=== PATIENT | male | born 1965 | race Caucasian/White ===

== ENCOUNTER 2016-11-03 11:37 | Emergency (ER) | payer MEDICARE, MEDICAID ==
--- NOTE | 2016-11-03 12:13 | EDM.PDOC ---
ED HPI GENERAL MEDICAL PROBLEM - General Chief Complaint: Syncope Stated Complaint: Unresponsive in dialysis Time Seen by Provider: 11/03/16 12:08 Source of Information: Reports: Patient, Family, RN History Limitations: Reports: No Limitations - History of Present Illness INITIAL COMMENTS - FREE TEXT/NARRATIVE: Arrives from 1st floor dialysis unit by orlin with report that pt became unresponsive for approx. 1 minute during his dialysis run today. Pt had just began dialysis and was 15 mins. into his run when the syncope occurred and tx was stopped. Pt was incontinent of stool during the episode. Dialysis nurse reports pt's eyes were open and he had a "fixed gaze" with no eye response to visual stimuli. Denies pain, fever, cough, N/V, SOTO, or chest pain. Pt denies any recent syncope or similar Sx's. Onset: Today Duration: Resolved Prior to Arrival Location: Reports: Generalized Improves with: Reports: None Worsens with: Reports: None Associated Symptoms: Reports: No Other Symptoms Back Pain Score (Numeric/FACES): 6 - Related Data Allergies Allergy/AdvReac Type Severity Reaction Status Date / Time ciprofloxacin Allergy Hives Verified 07/26/14 02:06 tegaderm tape Allergy Blisters Uncoded 07/26/14 02:06 Home Meds: Home Meds Aspirin [Ecotrin] 81 mg PO DAILY 06/27/13 [History] Cinacalcet [Sensipar] 30 mg PO DAILY 06/27/13 [History] Clopidogrel [Plavix] 75 mg PO DAILY 06/27/13 [History] Gabapentin [Neurontin] 300 mg PO TID 06/27/13 [History] Nitroglycerin [Nitrostat] 1 tab SL ASDIRECTED PRN 06/27/13 [History] Simvastatin [Zocor] 20 mg PO BEDTIME 06/27/13 [History] Acetaminophen 2 tab PO Q4HR PRN 07/26/14 [History] Calcium Carbonate/Vitamin D3 [Calcium 600 + Vit D 400 Tablet] 2 each PO BID 05/07 [History] Cyanocobalamin/FA/Pyridoxine [B Complex-Folic Acid] 1 each PO DAILY 07/26/14 [ History] Fludrocortisone [Florinef] 0.1 mg PO WITHBREAKFAST 07/26/14 [History] Loperamide HCl [Loperamide] 2 mg PO TID PRN 07/26/14 [History] Metoclopramide [Reglan] 5 mg PO TIDAC 07/26/14 [History] Midodrine 10 mg PO ASDIRECTED 07/26/14 [History] Mupirocin [Bactroban] 15 gm TP TID 07/26/14 [History] Nystatin [Nystatin Crm] 30 gm TOP BID 07/26/14 [History] Sevelamer Carbonate [Renvela] 2,400 mg PO TID 07/26/14 [History] Sodium Polystyrene Sulfonate [Kayexalate] 15 gm PO ONETIME 07/26/14 [History] fentaNYL [Fentanyl] 1 each TD ASDIRECTED 07/26/14 [History] oxyCODONE 10 mg PO BID PRN 07/26/14 [History] Sertraline [Zoloft] 50 mg PO DAILY 08/05/14 [History] Bisacodyl [Dulcolax] 10 mg RECTAL BID PRN 11/03/16 [History] Calcium Acetate 667 mg PO TID 11/03/16 [History] Past Medical History Cardiovascular History: Reports: CAD, Heart Failure, Hypertension, [place], SOB on Exertion, Stents Respiratory History: Reports: Sleep Apnea, SOB Gastrointestinal History: Reports: Cholelithiasis, Diverticulosis, GERD Genitourinary History: Reports: Acute Renal Failure, Chronic Renal Insuffiency, Dialysis, Diabetic Nephropathy, Renal Disease, Other (See Below) Other Genitourinary History: nephrolithiasis Musculoskeletal History: Reports: Fracture, Other (See Below) Other Musculoskeletal History: repair of fractured right kneecap Neurological History: Reports: Neuropathy, Diabetic, Neuropathy, Peripheral Psychiatric History: Reports: Eating Disorders Endocrine/Metabolic History: Reports: Diabetes, Type II, Hyperparathyroidism, IDDM, Obesity/BMI 30+ Hematologic History: Reports: Anemia Dermatologic History: Reports: Chronic Cellulitis - Past Surgical History Cardiovascular Surgical History: Reports: Carotid Stents, Coronary Artery Stent Social & Family History - Tobacco Use Smoking Status *Q: Never Smoker Years of Tobacco use: 20 Packs/Tins Daily: 1 Used Tobacco, but Quit: Yes Month Tobacco Last Used: 2003 Second Hand Smoke Exposure: No - Alcohol Use Days Per Week of Alcohol Use: 0 - Recreational Drug Use Recreational Drug Use: No - Living Situation & Occupation Living situation: Reports: , Extended Care Facility Occupation: Disabled ED ROS GENERAL - Review of Systems Review Of Systems: ROS reveals no pertinent complaints other than HPI. ED EXAM, GENERAL - Physical Exam Exam: See Below Exam Limited By: Other (doesn't recall the episode) General Appearance: Alert, Obese, Other (chronically ill appearing) Eye Exam: Bilateral Eye: Normal Inspection Ears: Hearing Grossly Normal Nose: Normal Inspection Throat/Mouth: Normal Voice, No Airway Compromise Head: Atraumatic, Normocephalic Neck: Normal Inspection, Supple, Non-Tender, Full Range of Motion Respiratory/Chest: No Respiratory Distress, Lungs Clear, No Accessory Muscle Use , Decreased Breath Sounds Cardiovascular: Regular Rate, Rhythm GI/Abdominal: Normal Bowel Sounds, Soft, Non-Tender, No Distention, Other ( obese abdomen) (Male) Exam: Deferred Rectal (Males) Exam: Deferred Neurological: Alert, Oriented, No Motor/Sensory Deficits Psychiatric: Normal Mood Skin Exam: Warm, Dry, Normal Color Course - Vital Signs Last Recorded V/S: Last Vital Signs Temp 35.7 C 11/03/16 12:25 Pulse 90 11/03/16 12:25 Resp 20 11/03/16 12:25 BP 166/107 H 11/03/16 12:25 Pulse Ox 95 11/03/16 12:25 - Orders/Labs/Meds Orders: Active Orders 24 hr Category Date Time Status Blood Glucose Check, Bedside [] ONETIME Care 11/03/16 12:23 Active EKG 12 Lead [EKG Documentation Completion] [RC] STAT Care 11/03/16 12:21 Active Peripheral IV Care [RC] . DIRECTED Care 11/03/16 12:23 Active CULTURE BLOOD [BC] Stat Lab 11/03/16 12:37 Received CULTURE BLOOD [BC] Stat Lab 11/03/16 13:03 Results Sodium Chloride 0.9% [Saline Flush] Med 11/03/16 12:20 Active 10 ml FLUSH ASDIRECTED PRN Blood Culture x2 Reflex Set [OM.PC] Stat Oth 11/03/16 12:23 Ordered Peripheral IV Insertion Adult [OM.PC] Stat Oth 11/03/16 12:21 Ordered Medication Orders Sodium Chloride (Saline Flush) 10 ml FLUSH ASDIRECTED PRN PRN Reason: Keep Vein Open Last Admin: 11/03/16 13:25 Dose: 10 ml Labs: Laboratory Tests 11/03/16 11/03/16 11/03/16 Range/Units 12:37 12:37 12:37 WBC 12.5 H (5.0-10.0) 10^3/uL RBC 3.70 L (4.6-6.2) 10^6/uL Hgb 11.3 L (14.0-18.0) g/dL Hct 36.7 L (40.0-54.0) % MCV 99.2 (80-100) fL MCH 30.5 (27.0-34.0) pg MCHC 30.8 L (33.0-35.0) g/dL Plt Count 175 (150-450) 10^3/uL Neut % (Auto) 83.0 H (42.2-75.2) % Lymph % (Auto) 7.9 L (20.5-50.1) % [place] % (Auto) 6.9 (2-8) % Eos % (Auto) 1.7 (1.0-3.0) % Baso % (Auto) 0.5 (0.0-1.0) % Sodium 140 (135-145) mmol/L Potassium 5.6 H (3.6-5.0) mmol/L Chloride 98 L (101-111) mmol/L Carbon Dioxide 29.0 (21.0-31.0) mmol/L Anion Gap 18.6 BUN 54 H (7-18) mg/dL Creatinine 6.9 H (0.6-1.3) mg/dL Est Cr Clr Drug Dosing 13.59 mL/min Estimated GFR (MDRD) 8 BUN/Creatinine Ratio 7.82 Glucose 114 H (74-105) mg/dL POC Glucose (70-105) mg/dl Lactic Acid (0.5-2.2) mmol/L Calcium 8.8 (8.4-10.2) mg/dl Total Bilirubin 0.6 (0.2-1.0) mg/dL AST 11 (10-42) IU/L ALT 8 L (10-60) IU/L Alkaline Phosphatase 96 (42-121) IU/L Creatine Kinase 56 (26-174) IU/L Creatine Kinase Index 6.6 H (0-2.4) % CK-MB (CK-2) 3.70 (0.4-4.7) ng/mL Troponin I 0.02 (0.00-0.02) ng/ml B-Natriuretic Peptide 423 H (0-100) pg/ml Total Protein 7.6 (6.7-8.2) g/dl Albumin 3.3 (3.2-5.5) g/dl Globulin 4.3 Albumin/Globulin Ratio 0.77 Amylase 264 H (28-100) U/L Lipase 29 (22-51) U/L 11/03/16 11/03/16 Range/Units 12:37 12:47 WBC (5.0-10.0) 10^3/uL RBC (4.6-6.2) 10^6/uL Hgb (14.0-18.0) g/dL Hct (40.0-54.0) % MCV (80-100) fL MCH (27.0-34.0) pg MCHC (33.0-35.0) g/dL Plt Count (150-450) 10^3/uL Neut % (Auto) (42.2-75.2) % Lymph % (Auto) (20.5-50.1) % [place] % (Auto) (2-8) % Eos % (Auto) (1.0-3.0) % Baso % (Auto) (0.0-1.0) % Sodium (135-145) mmol/L Potassium (3.6-5.0) mmol/L Chloride (101-111) mmol/L Carbon Dioxide (21.0-31.0) mmol/L Anion Gap BUN (7-18) mg/dL Creatinine (0.6-1.3) mg/dL Est Cr Clr Drug Dosing mL/min Estimated GFR (MDRD) BUN/Creatinine Ratio Glucose (74-105) mg/dL POC Glucose 130 H (70-105) mg/dl Lactic Acid 0.9 (0.5-2.2) mmol/L Calcium (8.4-10.2) mg/dl Total Bilirubin (0.2-1.0) mg/dL AST (10-42) IU/L ALT (10-60) IU/L Alkaline Phosphatase (42-121) IU/L Creatine Kinase (26-174) IU/L Creatine Kinase Index (0-2.4) % CK-MB (CK-2) (0.4-4.7) ng/mL Troponin I (0.00-0.02) ng/ml B-Natriuretic Peptide (0-100) pg/ml Total Protein (6.7-8.2) g/dl Albumin (3.2-5.5) g/dl Globulin Albumin/Globulin Ratio Amylase (28-100) U/L Lipase (22-51) U/L Meds: Medications Generic Name Dose Route Start Last Admin Trade Name Freq PRN Reason Stop Dose Admin Sodium Chloride 10 ml 11/03/16 12:20 11/03/16 13:25 Saline Flush FLUSH 10 ml ASDIRECTED PRN Administration Keep Vein Open Discontinued Medications Generic Name Dose Route Start Last Admin Trade Name Freq PRN Reason Stop Dose Admin Hydromorphone HCl 1 mg 11/03/16 12:56 11/03/16 13:06 Dilaudid IM 11/03/16 12:57 1 mg ONETIME ONE Administration - Radiology Interpretation Free Text/Narrative:: CXR: Asymmetric dense consolidation at Rt lung base that may represent effusion , or atelectasis. Stable cardiomegaly. See Rad. report. Departure - Departure Time of Disposition: 14:10 Disposition: DC/Tfer to Acute Hospital 02 Condition: Serious Clinical Impression: ESRD (end stage renal disease) on dialysis Syncope Qualifiers: Syncope type: unspecified Qualified Code(s): R55 - Syncope and collapse Abdominal pain Qualifiers: Abdominal location: lower abdomen, unspecified Qualified Code(s): R10.30 - Lower abdominal pain, unspecified - Discharge Information Forms: ED Department Discharge, Interfacility Transfer EMTALA - My Orders Last 24 Hours: My Active Orders 11/03/16 12:20 Sodium Chloride 0.9% [Saline Flush] 10 ml FLUSH ASDIRECTED PRN 11/03/16 12:21 EKG 12 Lead [EKG Documentation Completion] [RC] STAT Peripheral IV Insertion Adult [OM.PC] Stat 11/03/16 12:23 Blood Glucose Check, Bedside [RC] ONETIME Peripheral IV Care [RC] . DIRECTED Blood Culture x2 Reflex Set [OM.PC] Stat 11/03/16 12:37 CULTURE BLOOD [BC] Stat 11/03/16 13:03 CULTURE BLOOD [BC] Stat - Assessment/Plan Last 24 Hours: My Active Orders 11/03/16 12:20 Sodium Chloride 0.9% [Saline Flush] 10 ml FLUSH ASDIRECTED PRN 11/03/16 12:21 EKG 12 Lead [EKG Documentation Completion] [RC] STAT Peripheral IV Insertion Adult [OM.PC] Stat 11/03/16 12:23 Blood Glucose Check, Bedside [RC] ONETIME Peripheral IV Care [RC] . DIRECTED Blood Culture x2 Reflex Set [OM.PC] Stat 11/03/16 12:37 CULTURE BLOOD [BC] Stat 11/03/16 13:03 CULTURE BLOOD [BC] Stat
[2016-11-03] MEDS ORDERED: Sodium Chloride 0.9% 10 ML Syringe FLUSH PRN (12:20)
[2016-11-03 12:26] VITALS: BP 166/107
[2016-11-03] MEDS ORDERED: HYDROmorphone 1 MG/ML Syringe IM ONE (12:56)
--- NOTE | 2016-11-03 14:15 | CR ---
Clinical history: 51-year-old male chest pain. Interpretation: Abnormal. Cardiomegaly and generalized venous congestion/cephalization but relative improvement apparent pulmon zach axillary when compared directly to old film April 2015 i.e. less congested. Asymmetric dense consolidation right base that may represent pleural effusion and/or underlying atele ctasis and clinical? Right upper lobe and left lung relatively clear.
--- NOTE | 2016-11-05 12:36 | EKG ---
11/03/2016 - ANNA CAVAZOS - A 12-lead EKG shows normal sinus rhythm with heart rate of 91 and incomplete left bundle branch block. No significant ST elevation or ST depression noted on this 12-lead EKG. Nonspecific ST-T wave changes noted on lead V2 and V3. [facility] /[id number]
== END 2016-11-03 14:50 ==
LOC: DL.ED 11:37
DX: R55 Syncope and collapse (principal); I13.11 Hypertensive heart and chronic kidney disease without heart failure, with stage 5 chronic kidney disease, or end stage renal disease; N18.6 End stage renal disease; I50.9 Heart failure, unspecified; R10.30 Lower abdominal pain, unspecified; I25.2 Old myocardial infarction; I25.10 Atherosclerotic heart disease of native coronary artery without angina pectoris; E11.40 Type 2 diabetes mellitus with diabetic neuropathy, unspecified; K21.9 Gastro-esophageal reflux disease without esophagitis; E66.9 Obesity, unspecified; E11.22 Type 2 diabetes mellitus with diabetic chronic kidney disease; E21.3 Hyperparathyroidism, unspecified; Z88.1 Allergy status to other antibiotic agents; Z86.2 Personal history of diseases of the blood and blood-forming organs and certain disorders involving the immune mechanism; Z91.048 Other nonmedicinal substance allergy status; Z79.899 Other long term (current) drug therapy; Z79.82 Long term (current) use of aspirin; Z95.5 Presence of coronary angioplasty implant and graft; Z99.2 Dependence on renal dialysis
CPT/HCPCS: 36415; 71010; 80053; 82150; 82550; 82553; 82962; 83605; 83690; 83880; 84484; 85025; 87040; 93005; 93010; 96374; 99285; J1170; J7050; 99284

== ENCOUNTER 2017-02-06 09:29 | Emergency (ER) | payer MEDICARE, MEDICAID ==
[2017-02-06] MEDS ORDERED: Sodium Chloride 0.9% 10 ML Syringe FLUSH PRN (09:44)
[2017-02-06 10:34] LABS: CHLORIDE,CL 98 mmol/L (101-111); SODIUM,NA 138 mmol/L (135-145)
--- NOTE | 2017-02-06 10:36 | CR ---
Clinical history: 51-year-old male chest pain. Interpretation: Abnormal. Extremely poor inspiratory effort morbidly obese, [place] male with crowding/accentuating lung ma rkings in both bases. Masslike density in the right lung base present and unchanged since 03 November 2016 exam. Chronic cardiomegaly and generalized pulmonary venous congestion/cephalization. No new alveolar edema or dependent pleural fluid accumulation. No new lung mass or focal lobar pneumonia.
[2017-02-06 11:22] VITALS: BP 134/69
--- NOTE | 2017-02-06 11:36 | EDM.PDOC ---
ED HPI GENERAL MEDICAL PROBLEM - General Chief Complaint: Diabetic Complaint Stated Complaint: CRITICAL LAB Time Seen by Provider: 02/06/17 09:30 Source of Information: Reports: Patient, Family, Care Home Records, RN, RN Notes Reviewed History Limitations: Reports: Altered Mental Status - History of Present Illness INITIAL COMMENTS - FREE TEXT/NARRATIVE: Pt brought to the ER today by his and [facility] staff. states he has not been feeling well and did not go to dialysis on Thursday, so his last dialysis run was Thursday of this week. She states he has been more lethargic than usual. She states they were called because labs that were drawn yesterday were high. According to dialysis staff, his Potassium was 6.8. Dr. Rodriguez, scheduling clerk requests that the patient be evaluated and transferred to [facility]. Onset: Gradual - Related Data Allergies Allergy/AdvReac Type Severity Reaction Status Date / Time ciprofloxacin Allergy Hives Verified 07/26/14 02:06 tegaderm tape Allergy Blisters Uncoded 07/26/14 02:06 Home Meds: Home Meds Aspirin [Ecotrin] 81 mg PO DAILY 06/27/13 [History] Cinacalcet [Sensipar] 30 mg PO DAILY 06/27/13 [History] Clopidogrel [Plavix] 75 mg PO DAILY 06/27/13 [History] Gabapentin [Neurontin] 300 mg PO TID 06/27/13 [History] Nitroglycerin [Nitrostat] 1 tab SL ASDIRECTED PRN 06/27/13 [History] Simvastatin [Zocor] 20 mg PO BEDTIME 06/27/13 [History] Acetaminophen 2 tab PO Q4HR PRN 07/26/14 [History] Calcium Carbonate/Vitamin D3 [Calcium 600 + Vit D 400 Tablet] 2 each PO BID 05/07 [History] Cyanocobalamin/FA/Pyridoxine [B Complex-Folic Acid] 1 each PO DAILY 07/26/14 [ History] Fludrocortisone [Florinef] 0.1 mg PO WITHBREAKFAST 07/26/14 [History] Loperamide HCl [Loperamide] 2 mg PO TID PRN 07/26/14 [History] Metoclopramide [Reglan] 5 mg PO TIDAC 07/26/14 [History] Midodrine 10 mg PO ASDIRECTED 07/26/14 [History] Mupirocin [Bactroban] 15 gm TP TID 07/26/14 [History] Nystatin [Nystatin Crm] 30 gm TOP BID 07/26/14 [History] Sevelamer Carbonate [Renvela] 2,400 mg PO TID 07/26/14 [History] Sodium Polystyrene Sulfonate [Kayexalate] 15 gm PO ONETIME 07/26/14 [History] fentaNYL [Fentanyl] 1 each TD ASDIRECTED 07/26/14 [History] oxyCODONE 10 mg PO BID PRN 07/26/14 [History] Sertraline [Zoloft] 50 mg PO DAILY 08/05/14 [History] Bisacodyl [Dulcolax] 10 mg RECTAL BID PRN 11/03/16 [History] Calcium Acetate 667 mg PO TID 11/03/16 [History] Past Medical History Cardiovascular History: Reports: CAD, Heart Failure, Hypertension, [place], SOB on Exertion, Stents Respiratory History: Reports: Sleep Apnea, SOB Other Respiratory History: O2 dependent at all times, 2L per n/c Gastrointestinal History: Reports: Cholelithiasis, Diverticulosis, GERD Genitourinary History: Reports: Acute Renal Failure, Chronic Renal Insuffiency, Dialysis, Diabetic Nephropathy, Renal Disease, Other (See Below) Other Genitourinary History: nephrolithiasis Musculoskeletal History: Reports: Fracture, Other (See Below) Other Musculoskeletal History: repair of fractured right kneecap Neurological History: Reports: Neuropathy, Diabetic, Neuropathy, Peripheral Psychiatric History: Reports: Eating Disorders Endocrine/Metabolic History: Reports: Diabetes, Type II, Hyperparathyroidism, IDDM, Obesity/BMI 30+ Hematologic History: Reports: Anemia Dermatologic History: Reports: Chronic Cellulitis - Past Surgical History Cardiovascular Surgical History: Reports: Carotid Stents, Coronary Artery Stent Social & Family History - Tobacco Use Smoking Status *Q: Never Smoker Years of Tobacco use: 20 Packs/Tins Daily: 1 Used Tobacco, but Quit: Yes Month Tobacco Last Used: 2003 Second Hand Smoke Exposure: No - Caffeine Use Caffeine Use: Reports: Soda - Alcohol Use Days Per Week of Alcohol Use: 0 - Recreational Drug Use Recreational Drug Use: No - Living Situation & Occupation Living situation: Reports: , Extended Care Facility Occupation: Disabled ED ROS GENERAL - Review of Systems Review Of Systems: ROS reveals no pertinent complaints other than HPI. ED EXAM GENERAL NO PERIP PULSE - Physical Exam Exam: See Below Exam Limited By: Altered Mental Status General Appearance: No Apparent Distress, Lethargic Eye Exam: Bilateral Eye: Conjunctival Injection (Green matter from both eyes), EOMI, Normal Inspection, PERRL (4 sluggish) Ears: Normal External Exam, Hearing Grossly Normal Nose: Normal Inspection Throat/Mouth: Normal Inspection, Normal Voice, No Airway Compromise Head: Atraumatic, Normocephalic Neck: Normal Inspection, Supple, Non-Tender, Full Range of Motion Respiratory/Chest: No Respiratory Distress, No Accessory Muscle Use, Chest Non- Tender, Decreased Breath Sounds Cardiovascular: Normal Peripheral Pulses, Regular Rate, Rhythm, No Edema, No Gallop, No JVD, Systolic Murmur (+2) GI/Abdominal: Normal Bowel Sounds, Soft, Non-Tender, No Distention (Male) Exam: Deferred Rectal (Males) Exam: Deferred Back Exam: Normal Inspection, Full Range of Motion Extremities: Normal Inspection, Normal Range of Motion, Non-Tender, No Pedal Edema, Normal Capillary Refill Neurological: Oriented, Inattentive, Slow to Respond. No: Normal Gait (non weight bearing) Psychiatric: Normal Mood, Flat Affect Skin Exam: Warm, Dry, Intact, Normal Color, No Rash Lymphatic: No Adenopathy EKG INTERPRETATION EKG Date: 02/06/17 Rhythm: Other QRS: LBBB Comparison: No Change Course - Vital Signs Last Recorded V/S: Last Vital Signs Temp 98 F 02/06/17 09:31 Pulse 91 02/06/17 09:31 Resp 22 H 02/06/17 09:31 BP 134/69 02/06/17 09:31 Pulse Ox 71 L 02/06/17 09:31 - Orders/Labs/Meds Orders: Active Orders 24 hr Category Date Time Status EKG Documentation Completion [RC] STAT Care 02/06/17 09:44 Active Peripheral IV Care [RC] . DIRECTED Care 02/06/17 09:45 Active Peripheral IV Insertion Adult [OM.PC] Stat Oth 02/06/17 09:44 Ordered Labs: Laboratory Tests 02/06/17 02/06/17 Range/Units 10:06 10:06 WBC 10.3 H (5.0-10.0) 10^3/uL RBC 3.96 L (4.6-6.2) 10^6/uL Hgb 12.0 L (14.0-18.0) g/dL Hct 38.5 L (40.0-54.0) % MCV 97.2 (80-100) fL MCH 30.3 (27.0-34.0) pg MCHC 31.2 L (33.0-35.0) g/dL Plt Count 176 (150-450) 10^3/uL Neut % (Auto) 78.8 H (42.2-75.2) % Lymph % (Auto) 7.7 L (20.5-50.1) % [place] % (Auto) 11.8 H (2-8) % Eos % (Auto) 1.3 (1.0-3.0) % Baso % (Auto) 0.4 (0.0-1.0) % Sodium 138 (135-145) mmol/L Potassium 6.4 H (3.6-5.0) mmol/L Chloride 98 L (101-111) mmol/L Carbon Dioxide 27.0 (21.0-31.0) mmol/L Anion Gap 19.4 BUN 84 H D (7-18) mg/dL Creatinine 11.0 H D (0.6-1.3) mg/dL Est Cr Clr Drug Dosing TNP Estimated GFR (MDRD) 5 BUN/Creatinine Ratio 7.63 Glucose 97 (74-105) mg/dL Calcium 9.5 (8.4-10.2) mg/dl Total Bilirubin 0.4 (0.2-1.0) mg/dL AST 11 (10-42) IU/L ALT 9 L (10-60) IU/L Alkaline Phosphatase 83 (42-121) IU/L Troponin I 0.03 H* (0.00-0.02) ng/ml Total Protein 7.7 (6.7-8.2) g/dl Albumin 3.1 L (3.2-5.5) g/dl Globulin 4.6 Albumin/Globulin Ratio 0.67 Meds: Medications Discontinued Medications Generic Name Dose Route Start Last Admin Trade Name Freq PRN Reason Stop Dose Admin Sodium Chloride 10 ml 02/06/17 09:44 02/06/17 10:45 Saline Flush FLUSH 10 ml ASDIRECTED PRN Administration Keep Vein Open Departure - Departure Time of Disposition: 11:57 Disposition: DC/Tfer to Acute Hospital 02 Condition: Fair, Serious Clinical Impression: ESRD (end stage renal disease) on dialysis, Hyperkalemia - Discharge Information Referrals: PCP,Unobtain [Primary Care Provider] - Forms: ED Department Discharge, Interfacility Transfer ANJELICA - My Orders Last 24 Hours: My Active Orders 02/06/17 09:44 EKG Documentation Completion [RC] STAT Peripheral IV Insertion Adult [OM.PC] Stat 02/06/17 09:45 Peripheral IV Care [RC] . DIRECTED - Assessment/Plan Last 24 Hours: My Active Orders 02/06/17 09:44 EKG Documentation Completion [RC] STAT Peripheral IV Insertion Adult [OM.PC] Stat 02/06/17 09:45 Peripheral IV Care [RC] . DIRECTED
--- NOTE | 2017-02-11 10:50 | EKG ---
02/06/2017 - ANNA CAVAZOS I reviewed the EKG and agree with the machine's reading. [facility] /[id number]
== END 2017-02-06 11:57 ==
LOC: DL.ED 09:29 → EEVIPCON 09:29 → DL.ED 11:57
DX: I13.2 Hypertensive heart and chronic kidney disease with heart failure and with stage 5 chronic kidney disease, or end stage renal disease (principal); E11.22 Type 2 diabetes mellitus with diabetic chronic kidney disease; N18.6 End stage renal disease; I50.9 Heart failure, unspecified; E87.5 Hyperkalemia; Z99.2 Dependence on renal dialysis; Z88.1 Allergy status to other antibiotic agents; Z91.09 Other allergy status, other than to drugs and biological substances; Z79.82 Long term (current) use of aspirin; Z79.899 Other long term (current) drug therapy; Z87.891 Personal history of nicotine dependence
CPT/HCPCS: 36415; 71010; 80053; 84484; 85025; 93005; 99285; J7050; 93010; 99284

== ENCOUNTER 2018-03-12 12:54 | Emergency (ER) | payer MEDICARE, MEDICAID ==
[2018-03-12 13:03] VITALS: BP 119/74
--- NOTE | 2018-03-12 14:06 | CR ---
Clinical history: 52-year-old obese diabetic male with shortness of breath. Interpretation: Abnormal. Chronic venous congestion and pleural reactive density right base relatively unchanged when compared to October and January 2017 films. Bibasilar new bibasilar atelectasis, infiltrates or infarct possibly reflecting less than optimal inspiratory effort this [place] patient. Cardiac silhouette normal without cephalization of flow, new alveolar edema or dependent pleural fluid accumulation. No pneumothorax or free subdiaphragmatic air. CONCLUSION: Chronic abnormalities similar to appearance [facility] chest films 2017 (see above).
[2018-03-12 14:08] LABS: ANION GAP 16.3; CHLORIDE,CL 94 mmol/L (101-111); SODIUM,NA 136 mmol/L (135-145)
--- NOTE | 2018-03-12 14:31 | EDM.PDOC ---
ED HPI GENERAL MEDICAL PROBLEM - General Chief Complaint: Respiratory Problem Stated Complaint: TROUBLE BREATHING Time Seen by Provider: 03/12/18 13:17 Source of Information: Reports: Patient, RN, RN Notes Reviewed History Limitations: Reports: No Limitations - History of Present Illness INITIAL COMMENTS - FREE TEXT/NARRATIVE: Patient presented to ER from dialysis with complaint of shortness of breath. Report from dialysis nurses was sudden onset of shortness of breath. His sats were down to 75%. He has 02 on at all times. He has had no nausea, vomiting, diarrhea, cough and chest pain. No chills or shortness of breath. His states very sleepy always. Patient only had half hour run today and no weight was taken off. Onset: Today Duration: Getting Worse Location: Reports: Generalized Quality: Reports: Ache Severity: Moderate Improves with: Reports: None Worsens with: Reports: None Associated Symptoms: Reports: No Other Symptoms - Related Data Allergies Allergy/AdvReac Type Severity Reaction Status Date / Time ciprofloxacin Allergy Hives Verified 07/26/14 02:06 tegaderm tape Allergy Blisters Uncoded 07/26/14 02:06 Home Meds: Home Meds Aspirin [Ecotrin] 81 mg PO DAILY 06/27/13 [History] Cinacalcet [Sensipar] 30 mg PO DAILY 06/27/13 [History] Clopidogrel [Plavix] 75 mg PO DAILY 06/27/13 [History] Gabapentin [Neurontin] 300 mg PO TID 06/27/13 [History] Nitroglycerin [Nitrostat] 1 tab SL ASDIRECTED PRN 06/27/13 [History] Simvastatin [Zocor] 20 mg PO BEDTIME 06/27/13 [History] Acetaminophen 2 tab PO Q4HR PRN 07/26/14 [History] Calcium Carbonate/Vitamin D3 [Calcium 600 + Vit D 400 Tablet] 2 each PO BID 05/07 [History] Cyanocobalamin/FA/Pyridoxine [B Complex-Folic Acid] 1 each PO DAILY 07/26/14 [ History] Fludrocortisone [Florinef] 0.1 mg PO WITHBREAKFAST 07/26/14 [History] Loperamide HCl [Loperamide] 2 mg PO TID PRN 07/26/14 [History] Metoclopramide [Reglan] 5 mg PO TIDAC 07/26/14 [History] Midodrine 10 mg PO ASDIRECTED 07/26/14 [History] Mupirocin [Bactroban] 15 gm TP TID 07/26/14 [History] Nystatin [Nystatin Crm] 30 gm TOP BID 07/26/14 [History] Sevelamer Carbonate [Renvela] 2,400 mg PO TID 07/26/14 [History] Sodium Polystyrene Sulfonate [Kayexalate] 15 gm PO ONETIME 07/26/14 [History] fentaNYL [Fentanyl] 1 each TD ASDIRECTED 07/26/14 [History] oxyCODONE 10 mg PO BID PRN 07/26/14 [History] Sertraline [Zoloft] 50 mg PO DAILY 08/05/14 [History] Bisacodyl [Dulcolax] 10 mg RECTAL BID PRN 11/03/16 [History] Calcium Acetate 667 mg PO TID 11/03/16 [History] Past Medical History Cardiovascular History: Reports: CAD, Heart Failure, Hypertension, [place], SOB on Exertion, Stents Respiratory History: Reports: Sleep Apnea, SOB Other Respiratory History: O2 dependent at all times, 2L per n/c Gastrointestinal History: Reports: Cholelithiasis, Diverticulosis, GERD Genitourinary History: Reports: Acute Renal Failure, Chronic Renal Insuffiency, Dialysis, Diabetic Nephropathy, Renal Disease, Other (See Below) Other Genitourinary History: nephrolithiasis Musculoskeletal History: Reports: Fracture, Other (See Below) Other Musculoskeletal History: repair of fractured right kneecap Neurological History: Reports: Neuropathy, Diabetic, Neuropathy, Peripheral Psychiatric History: Reports: Eating Disorders Endocrine/Metabolic History: Reports: Diabetes, Type II, Hyperparathyroidism, IDDM, Obesity/BMI 30+ Hematologic History: Reports: Anemia Dermatologic History: Reports: Chronic Cellulitis - Past Surgical History Cardiovascular Surgical History: Reports: Carotid Stents, Coronary Artery Stent Social & Family History - Caffeine Use Caffeine Use: Reports: Soda - Living Situation & Occupation Living situation: Reports: , Extended Care Facility Occupation: Disabled ED ROS GENERAL - Review of Systems Review Of Systems: ROS reveals no pertinent complaints other than HPI. ED EXAM, GENERAL - Physical Exam Exam: See Below Exam Limited By: No Limitations General Appearance: Other (sleepy and lethargic) Eye Exam: Bilateral Eye: EOMI, Normal Inspection, PERRL Ears: Normal External Exam, Normal Canal, Hearing Grossly Normal, Normal TMs Nose: Normal Inspection, Normal Mucosa, No Blood Throat/Mouth: Normal Inspection, Normal Lips, Normal Teeth, Normal Gums, Normal Oropharynx, Normal Voice, No Airway Compromise Head: Atraumatic, Normocephalic Neck: Normal Inspection, Supple, Non-Tender, Full Range of Motion Respiratory/Chest: Crackles, Other (lung sounds diminished) Cardiovascular: Other (murmur) GI/Abdominal: Normal Bowel Sounds, Soft, Non-Tender, No Organomegaly, No Distention, No Abnormal Bruit, No Mass (Male) Exam: Deferred Rectal (Males) Exam: Deferred Back Exam: Normal Inspection, Full Range of Motion, NT Extremities: Normal Inspection, Normal Range of Motion, Non-Tender, Normal Capillary Refill, No Pedal Edema Neurological: Alert, Oriented, CN II-XII Intact, Normal Cognition, Normal Gait, Normal Reflexes, No Motor/Sensory Deficits Psychiatric: Normal Affect, Normal Mood Skin Exam: Warm, Dry, Intact, Normal Color, No Rash EKG INTERPRETATION EKG Date: 03/12/18 Time: 12:54 Rhythm: Other (Sinus with PVC, LBBB) Rate (Beats/Min): 83 P-Wave: Present QRS: LBBB ST-T: Normal QT: Normal Comparison: No Change Course - Vital Signs Last Recorded V/S: Last Vital Signs Temp 97.2 F 03/12/18 13:02 Pulse 82 03/12/18 13:02 Resp 20 03/12/18 13:02 BP 119/74 03/12/18 13:02 Pulse Ox - Orders/Labs/Meds Orders: Active Orders 24 hr Category Date Time Status EKG 12 Lead [EKG Documentation Completion] [RC] STAT Care 03/12/18 12:50 Active Labs: Laboratory Tests 03/12/18 03/12/18 Range/Units 13:40 13:40 WBC 14.7 H (5.0-10.0) 10^3/uL RBC 4.14 L (4.6-6.2) 10^6/uL Hgb 12.5 L (14.0-18.0) g/dL Hct 40.9 (40.0-54.0) % MCV 98.8 (80-100) fL MCH 30.2 (27.0-34.0) pg MCHC 30.6 L (33.0-35.0) g/dL Plt Count 153 (150-450) 10^3/uL Neut % (Auto) 82.7 H (42.2-75.2) % Lymph % (Auto) 6.5 L (20.5-50.1) % [place] % (Auto) 8.8 H (2-8) % Eos % (Auto) 1.6 (1.0-3.0) % Baso % (Auto) 0.4 (0.0-1.0) % Sodium 136 (135-145) mmol/L Potassium 4.3 D (3.6-5.0) mmol/L Chloride 94 L (101-111) mmol/L Carbon Dioxide 30.0 (21.0-31.0) mmol/L Anion Gap 16.3 BUN 38 H D (7-18) mg/dL Creatinine 5.5 H D (0.6-1.3) mg/dL Est Cr Clr Drug Dosing 16.85 mL/min Estimated GFR (MDRD) 11 BUN/Creatinine Ratio 6.90 Glucose 126 H (74-105) mg/dL Calcium 9.2 (8.4-10.2) mg/dl Total Bilirubin 1.0 (0.2-1.0) mg/dL AST 14 (10-42) IU/L ALT 11 (10-60) IU/L Alkaline Phosphatase 128 H (42-121) IU/L Troponin I < 0.02 (0.00-0.02) ng/ml B-Natriuretic Peptide 599 H (0-100) pg/ml Total Protein 8.1 (6.7-8.2) g/dl Albumin 4.3 (3.2-5.5) g/dl Globulin 3.8 Albumin/Globulin Ratio 1.13 - Radiology Interpretation Free Text/Narrative:: Chest xray: New bibasilar atelectasis, infiltrates, or infarct possibly reflecting less than optimal inspiratory effort. See rad report Departure - Departure Time of Disposition: 14:38 Disposition: Home, Self-Care 01 Condition: Fair Clinical Impression: ESRD (end stage renal disease) on dialysis Pneumonia Qualifiers: Pneumonia type: due to unspecified organism Laterality: bilateral Lung location : unspecified part of lung Qualified Code(s): J18.9 - Pneumonia, unspecified organism - Discharge Information *PRESCRIPTION DRUG MONITORING PROGRAM REVIEWED*: No *COPY OF PRESCRIPTION DRUG MONITORING REPORT IN PATIENT ELISABETH: No Instructions: Community-Acquired Pneumonia, Adult, [id number] Referrals: Gagandeep Moran MD [Primary Care Provider] - Forms: ED Department Discharge Additional Instructions: RX: Azithromycin Follow up with dialysis Rest Follow up with Simi Voss NP - My Orders Last 24 Hours: My Active Orders 03/12/18 12:50 EKG 12 Lead [EKG Documentation Completion] [RC] STAT - Assessment/Plan Last 24 Hours: My Active Orders 03/12/18 12:50 EKG 12 Lead [EKG Documentation Completion] [RC] STAT
== END 2018-03-12 14:55 | disposition home or self-care (01) ==
LOC: DL.ED 12:54
DX: J18.9 Pneumonia, unspecified organism (principal); I13.2 Hypertensive heart and chronic kidney disease with heart failure and with stage 5 chronic kidney disease, or end stage renal disease; E11.22 Type 2 diabetes mellitus with diabetic chronic kidney disease; N18.6 End stage renal disease; I50.9 Heart failure, unspecified; Z99.2 Dependence on renal dialysis; I25.2 Old myocardial infarction; E11.40 Type 2 diabetes mellitus with diabetic neuropathy, unspecified; Z79.82 Long term (current) use of aspirin; Z79.899 Other long term (current) drug therapy; Z88.1 Allergy status to other antibiotic agents; Z91.09 Other allergy status, other than to drugs and biological substances
CPT/HCPCS: 36415; 71045; 80053; 83880; 84484; 85025; 93005; 99285

== ENCOUNTER 2018-03-17 14:45 | Emergency (ER) | payer MEDICARE, MEDICAID ==
[2018-03-17 15:08] VITALS: BP 141/81
[2018-03-17 15:57] LABS: ANION GAP 17.6; CHLORIDE,CL 92 mmol/L (101-111); SODIUM,NA 133 mmol/L (135-145)
[2018-03-17] MEDS ORDERED: cefTRIAXone 500 MG Vial IVPUSH ONE (16:28)
[2018-03-17] MEDS ORDERED: Acetaminophen 325 MG Tab PO ONE (16:49)
--- NOTE | 2018-03-17 16:53 | EDM.PDOC ---
Scribed by Sarahi Cohen 03/17/18 1313 for Danie Diane PA ED HPI GENERAL MEDICAL PROBLEM - General Chief Complaint: Headache Stated Complaint: SOB Time Seen by Provider: 03/17/18 16:10 Source of Information: Reports: Patient, RN, RN Notes Reviewed History Limitations: Reports: No Limitations - History of Present Illness INITIAL COMMENTS - FREE TEXT/NARRATIVE: Patient states his head hurts x 2 days. He is eating and drinking but has decreased appetite. Last night he was dropping things. He has had a headache. He has a head droop x1 months. Two weeks ago reported to nurse the drooping symptoms. Onset: Gradual Duration: Constant Location: Reports: Head Quality: Reports: Ache Severity: Mild Improves with: Reports: None Worsens with: Reports: None Associated Symptoms: Reports: No Other Symptoms Headache Pain Score (Numeric/FACES): 7 - Related Data Allergies Allergy/AdvReac Type Severity Reaction Status Date / Time ciprofloxacin Allergy Hives Verified 03/17/18 15:13 tegaderm tape Allergy Blisters Uncoded 03/17/18 15:13 Home Meds: Home Meds Aspirin [Ecotrin] 81 mg PO DAILY 06/27/13 [History] Cinacalcet [Sensipar] 30 mg PO DAILY 06/27/13 [History] Clopidogrel [Plavix] 75 mg PO DAILY 06/27/13 [History] Gabapentin [Neurontin] 300 mg PO TID 06/27/13 [History] Nitroglycerin [Nitrostat] 1 tab SL ASDIRECTED PRN 06/27/13 [History] Simvastatin [Zocor] 20 mg PO BEDTIME 06/27/13 [History] Acetaminophen 2 tab PO Q4HR PRN 07/26/14 [History] Calcium Carbonate/Vitamin D3 [Calcium 600 + Vit D 400 Tablet] 2 each PO BID 05/07 [History] Cyanocobalamin/FA/Pyridoxine [B Complex-Folic Acid] 1 each PO DAILY 07/26/14 [ History] Fludrocortisone [Florinef] 0.1 mg PO WITHBREAKFAST 07/26/14 [History] Loperamide HCl [Loperamide] 2 mg PO TID PRN 07/26/14 [History] Metoclopramide [Reglan] 5 mg PO TIDAC 07/26/14 [History] Midodrine 10 mg PO ASDIRECTED 07/26/14 [History] Mupirocin [Bactroban] 15 gm TP TID 07/26/14 [History] Nystatin [Nystatin Crm] 30 gm TOP BID 07/26/14 [History] Sevelamer Carbonate [Renvela] 2,400 mg PO TID 07/26/14 [History] Sodium Polystyrene Sulfonate [Kayexalate] 15 gm PO ONETIME 07/26/14 [History] fentaNYL [Fentanyl] 1 each TD ASDIRECTED 07/26/14 [History] oxyCODONE 10 mg PO BID PRN 07/26/14 [History] Sertraline [Zoloft] 50 mg PO DAILY 08/05/14 [History] Bisacodyl [Dulcolax] 10 mg RECTAL BID PRN 11/03/16 [History] Calcium Acetate 667 mg PO TID 11/03/16 [History] Past Medical History Cardiovascular History: Reports: CAD, Heart Failure, Hypertension, [place], SOB on Exertion, Stents Respiratory History: Reports: Sleep Apnea, SOB Other Respiratory History: O2 dependent at all times, 2L per n/c Gastrointestinal History: Reports: Cholelithiasis, Diverticulosis, GERD Genitourinary History: Reports: Acute Renal Failure, Chronic Renal Insuffiency, Dialysis, Diabetic Nephropathy, Renal Disease, Other (See Below) Other Genitourinary History: nephrolithiasis Musculoskeletal History: Reports: Fracture, Other (See Below) Other Musculoskeletal History: repair of fractured right kneecap Neurological History: Reports: Neuropathy, Diabetic, Neuropathy, Peripheral Psychiatric History: Reports: Eating Disorders Endocrine/Metabolic History: Reports: Diabetes, Type II, Hyperparathyroidism, IDDM, Obesity/BMI 30+ Hematologic History: Reports: Anemia Oncologic (Cancer) History: Reports: None Dermatologic History: Reports: Chronic Cellulitis - Past Surgical History Cardiovascular Surgical History: Reports: Carotid Stents, Coronary Artery Stent Social & Family History - Family History Family Medical History: Noncontributory - Tobacco Use Smoking Status *Q: Never Smoker - Caffeine Use Caffeine Use: Reports: Soda - Recreational Drug Use Recreational Drug Use: No - Living Situation & Occupation Living situation: Reports: , Extended Care Facility Occupation: Disabled ED ROS GENERAL - Review of Systems Review Of Systems: ROS reveals no pertinent complaints other than HPI. - Physical Exam Exam: See Below Exam Limited By: No Limitations General Appearance: Alert, WD/WN, No Apparent Distress Eye Exam: Bilateral Eye: EOMI, Normal Inspection, PERRL Ears: Normal External Exam Nose: Normal Inspection, Normal Mucosa, No Blood Throat/Mouth: Normal Inspection, Normal Lips, Normal Teeth, Normal Gums, Normal Oropharynx, Normal Voice, No Airway Compromise Head Exam: Atraumatic, Normocephalic Neck: Normal Inspection, Supple, Non-Tender, Full Range of Motion Respiratory/Chest: No Respiratory Distress, Normal Breath Sounds, No Accessory Muscle Use, Chest Non-Tender, Decreased Breath Sounds (throughout ) Cardiovascular: Normal Peripheral Pulses, Regular Rate, Rhythm, No Edema, No Gallop, No JVD, No Murmur, No Rub GI/Abdominal: Normal Bowel Sounds, Soft, Non-Tender, No Organomegaly, No Distention, No Abnormal Bruit, No Mass (Male) Exam: Deferred Rectal (Males) Exam: Deferred Neuro Exam (Abbreviated): Alert, Oriented, CN II-XII Intact, Normal Cognition, Normal Gait, Normal Reflexes, No Motor/Sensory Deficits Back Exam: Normal Inspection, Full Range of Motion, NT Extremities: Normal Inspection, Normal Range of Motion, Non-Tender, No Pedal Edema, Normal Capillary Refill Psychiatric: Normal Affect, Normal Mood Skin Exam: Warm, Dry, Intact, Normal Color, No Rash Course - Vital Signs Last Recorded V/S: Last Vital Signs Temp 36.2 C 03/17/18 15:05 Pulse 83 03/17/18 15:05 Resp 18 03/17/18 15:05 BP 141/81 H 03/17/18 15:05 Pulse Ox 100 03/17/18 15:05 - Orders/Labs/Meds Orders: Active Orders 24 hr Category Date Time Status Chest 1V Frontal [CR] Urgent Exams 03/17/18 15:55 Taken Head wo Cont [CT] Urgent Exams 03/17/18 15:11 Taken Labs: Laboratory Tests 03/17/18 03/17/18 03/17/18 Range/Units 15:20 15:20 15:20 WBC 11.2 H (5.0-10.0) 10^3/uL RBC 4.02 L (4.6-6.2) 10^6/uL Hgb 12.2 L (14.0-18.0) g/dL Hct 40.0 (40.0-54.0) % MCV 99.5 (80-100) fL MCH 30.3 (27.0-34.0) pg MCHC 30.5 L (33.0-35.0) g/dL Plt Count 159 (150-450) 10^3/uL Neut % (Auto) 83.1 H (42.2-75.2) % Lymph % (Auto) 6.9 L (20.5-50.1) % [place] % (Auto) 8.1 H (2-8) % Eos % (Auto) 1.5 (1.0-3.0) % Baso % (Auto) 0.4 (0.0-1.0) % PT 9.8 (9.0-12.0) SEC INR 1.0 (0.9-1.2) Sodium 133 L (135-145) mmol/L Potassium 3.6 (3.6-5.0) mmol/L Chloride 92 L (101-111) mmol/L Carbon Dioxide 27.0 (21.0-31.0) mmol/L Anion Gap 17.6 BUN 24 H (7-18) mg/dL Creatinine 4.3 H D (0.6-1.3) mg/dL Est Cr Clr Drug Dosing 21.56 mL/min Estimated GFR (MDRD) 14 BUN/Creatinine Ratio 5.58 Glucose 127 H (74-105) mg/dL Calcium 9.0 (8.4-10.2) mg/dl Total Bilirubin 0.8 (0.2-1.0) mg/dL AST 15 (10-42) IU/L ALT 19 (10-60) IU/L Alkaline Phosphatase 127 H (42-121) IU/L Troponin I < 0.02 (0.00-0.02) ng/ml Total Protein 9.0 H (6.7-8.2) g/dl Albumin 4.6 (3.2-5.5) g/dl Globulin 4.4 Albumin/Globulin Ratio 1.05 Meds: Medications Discontinued Medications Generic Name Dose Route Start Last Admin Trade Name Freq PRN Reason Stop Dose Admin Ceftriaxone Sodium 1,000 mg 03/17/18 16:28 03/17/18 16:37 Rocephin IVPUSH 03/17/18 16:29 1,000 mg ONETIME ONE Administration Departure - Departure Time of Disposition: 16:48 Disposition: Home, Self-Care 01 Condition: Fair Clinical Impression: Tension-type headache - Discharge Information *PRESCRIPTION DRUG MONITORING PROGRAM REVIEWED*: Not Applicable *COPY OF PRESCRIPTION DRUG MONITORING REPORT IN PATIENT ELISABETH: Not Applicable Instructions: General Headache Without Cause, [id number] Forms: ED Department Discharge Care Plan Goals: The patient and family were advised of the examination, lab and CT results during the visit. The patient was given an IV dose of Rocephin due to an elevated WBC with a history of pneumonia (currently on Azithromycin). The patient was also given an oral dose of Tylenol while in the ED. The patient was encouraged to continue to communicate with nursing staff. If the patient has any additional symptoms or concerns, the patient should visit his primary care facility or return to the emergency department. - My Orders Last 24 Hours: My Active Orders 03/17/18 15:11 Head wo Cont [CT] Urgent 03/17/18 15:55 Chest 1V Frontal [CR] Urgent - Assessment/Plan Last 24 Hours: My Active Orders 03/17/18 15:11 Head wo Cont [CT] Urgent 03/17/18 15:55 Chest 1V Frontal [CR] Urgent I have read and agree with the documentation that has been completed regarding this visit. By signing this record, I attest that the documentation was completed in my physical presence and is an accurate record of the encounter.
== END 2018-03-17 17:14 | disposition home or self-care (01) ==
LOC: DL.ED 14:45
DX: G44.209 Tension-type headache, unspecified, not intractable (principal); I13.0 Hypertensive heart and chronic kidney disease with heart failure and stage 1 through stage 4 chronic kidney disease, or unspecified chronic kidney disease; I50.9 Heart failure, unspecified; E11.40 Type 2 diabetes mellitus with diabetic neuropathy, unspecified; N18.9 Chronic kidney disease, unspecified; E11.22 Type 2 diabetes mellitus with diabetic chronic kidney disease; D63.1 Anemia in chronic kidney disease; Z88.1 Allergy status to other antibiotic agents; Z88.8 Allergy status to other drugs, medicaments and biological substances; Z79.82 Long term (current) use of aspirin; Z79.899 Other long term (current) drug therapy
CPT/HCPCS: 36415; 70450; 71045; 80053; 84484; 85025; 85610; 96374; 99284; A9270; J0696

== ENCOUNTER 2019-03-30 14:54 | Emergency (ER) | payer MEDICARE, MEDICAID ==
[2019-03-30 15:17] VITALS: BP 111/51; PULSE 93
[2019-03-30] MEDS ORDERED: Sodium Chloride 0.9% 10 ML Syringe FLUSH PRN (15:40)
--- NOTE | 2019-03-30 16:04 | EDM.PDOC ---
ED HPI GENERAL MEDICAL PROBLEM - General Chief Complaint: General Stated Complaint: RESPIRATORY PROBLEM Time Seen by Provider: 03/30/19 15:20 Source of Information: Reports: Patient, Family (), [facility] Records, Old Records, RN, RN Notes Reviewed History Limitations: Reports: No Limitations - History of Present Illness INITIAL COMMENTS - FREE TEXT/NARRATIVE: Pt sent from dialysis with report of shortness of breath, low BP, and not feeling well in general. Pt had a full run of dialysis today, but only had 1.3kg taken off today because his BP was too low. Pt denies chest pain, nausea, vomiting, aspiration, abdominal pain, cough, or increasing edema. He reports having a painful area of skin pressure or early skin break down on his buttock. [facility] a barrier ointment on the area, but he doesn' t think it is helping. Pt is not able to stand, bear wt, or ambulate. He sits in his wheel chair all day, and sleeps in a recliner. He requires a [employer] Lift for transfers. Onset: Gradual Duration: Week(s): (1-2), Constant, Getting Worse Location: Reports: Chest, Generalized Quality: Reports: Ache (at buttock area of skin break down) Severity: Severe Improves with: Reports: None Worsens with: Reports: Other (Sitting) Associated Symptoms: Reports: No Other Symptoms Treatments SET UP OPERATOR: Reports: IV/IO Neck Pain Score (Numeric/FACES): 2 - Related Data Allergies Allergy/AdvReac Type Severity Reaction Status Date / Time ciprofloxacin Allergy Hives Verified 03/30/19 15:24 tegaderm tape Allergy Blisters Uncoded 03/30/19 15:24 Home Meds: Home Meds Aspirin [Ecotrin] 81 mg PO DAILY 06/27/13 [History] Cinacalcet [Sensipar] 30 mg PO DAILY 06/27/13 [History] Clopidogrel [Plavix] 75 mg PO DAILY 06/27/13 [History] Gabapentin [Neurontin] 300 mg PO TID 06/27/13 [History] Nitroglycerin [Nitrostat] 1 tab SL ASDIRECTED PRN 06/27/13 [History] Simvastatin [Zocor] 20 mg PO BEDTIME 06/27/13 [History] Acetaminophen 2 tab PO Q4HR PRN 07/26/14 [History] Calcium Carbonate/Vitamin D3 [Calcium 600 + Vit D 400 Tablet] 2 each PO BID 05/07 [History] Cyanocobalamin/FA/Pyridoxine [B Complex-Folic Acid] 1 each PO DAILY 07/26/14 [ History] Fludrocortisone [Florinef] 0.1 mg PO WITHBREAKFAST 07/26/14 [History] Loperamide HCl [Loperamide] 2 mg PO TID PRN 07/26/14 [History] Metoclopramide [Reglan] 5 mg PO TIDAC 07/26/14 [History] Midodrine 10 mg PO ASDIRECTED 07/26/14 [History] Mupirocin [Bactroban] 15 gm TP TID 07/26/14 [History] Nystatin [Nystatin Crm] 30 gm TOP BID 07/26/14 [History] Sevelamer Carbonate [Renvela] 2,400 mg PO TID 07/26/14 [History] Sodium Polystyrene Sulfonate [Kayexalate] 15 gm PO ONETIME 07/26/14 [History] fentaNYL [Fentanyl] 1 each TD ASDIRECTED 07/26/14 [History] oxyCODONE 10 mg PO BID PRN 07/26/14 [History] Sertraline [Zoloft] 50 mg PO DAILY 08/05/14 [History] Bisacodyl [Dulcolax] 10 mg RECTAL BID PRN 11/03/16 [History] Calcium Acetate 667 mg PO TID 11/03/16 [History] Past Medical History HEENT History: Reports: None Cardiovascular History: Reports: CAD, Heart Failure, Hypertension, [place], SOB on Exertion, Stents Respiratory History: Reports: Sleep Apnea, SOB Other Respiratory History: O2 dependent at all times, 2L per n/c Gastrointestinal History: Reports: Cholelithiasis, Diverticulosis, GERD Genitourinary History: Reports: Acute Renal Failure, Chronic Renal Insuffiency, Dialysis, Diabetic Nephropathy, Renal Disease, Other (See Below) Other Genitourinary History: nephrolithiasis Musculoskeletal History: Reports: Fracture, Other (See Below) Other Musculoskeletal History: repair of fractured right kneecap Neurological History: Reports: Neuropathy, Diabetic, Neuropathy, Peripheral Psychiatric History: Reports: Eating Disorders Endocrine/Metabolic History: Reports: Diabetes, Type II, Hyperparathyroidism, IDDM, Obesity/BMI 30+ Hematologic History: Reports: Anemia Immunologic History: Reports: None Oncologic (Cancer) History: Reports: None Dermatologic History: Reports: Chronic Cellulitis - Infectious Disease History Infectious Disease History: Reports: None - Past Surgical History Cardiovascular Surgical History: Reports: Carotid Stents, Coronary Artery Stent Social & Family History - Family History Family Medical History: Noncontributory - Tobacco Use Smoking Status *Q: Never Smoker - Caffeine Use Caffeine Use: Reports: Soda - Recreational Drug Use Recreational Drug Use: No - Living Situation & Occupation Living situation: Reports: , Extended Care Facility Occupation: Disabled ED ROS GENERAL - Review of Systems Review Of Systems: Comprehensive ROS is negative, except as noted in HPI. ED EXAM, GENERAL - Physical Exam Exam: See Below Exam Limited By: Physical Impairment (Obesity/immobility) General Appearance: Alert, No Apparent Distress, Obese, Other (Chronically ill, but non-toxic appearing) Nose: Normal Inspection Throat/Mouth: Normal Inspection, Normal Voice, No Airway Compromise Head: Atraumatic, Normocephalic Neck: Normal Inspection Respiratory/Chest: No Respiratory Distress, No Accessory Muscle Use, Decreased Breath Sounds, Crackles (Coarse breath sounds, distant sounds due to morbidly obese body habitus), Rhonchi (Rt base, faint). No: Wheezing, Stridor Cardiovascular: Regular Rate, Rhythm, Other (Chronic/stable lower extremity edema, compression wrap not removed from Rt LE for exam) GI/Abdominal: Normal Bowel Sounds, Soft, Non-Tender, Other ([place] obese abdomen ) Extremities: Pedal Edema Neurological: Alert, Oriented, CN II-XII Intact, Normal Cognition, Other ( Generalized weakness, physical deconditioning) Psychiatric: Depressed Mood, Flat Affect Skin Exam: Other (Unable to assess sacral and buttock region for skin break down as pt will not get out of his wheel chair, and cannot stand.) EKG INTERPRETATION EKG Date: 03/30/19 Time: 15:56 Rhythm: Other (SR) Rate (Beats/Min): 96 [place]: LAD-Left [place] Deviation P-Wave: Present QRS: LBBB QT: Normal Comparison: No Change EKG Interpretation Comments: Motion artifact Course - Vital Signs Last Recorded V/S: Last Vital Signs Temp 96.2 F 03/30/19 15:16 Pulse 93 03/30/19 15:16 Resp 16 03/30/19 15:16 BP 111/51 L 03/30/19 15:16 Pulse Ox 98 03/30/19 15:16 - Orders/Labs/Meds Orders: Active Orders 24 hr Category Date Time Status EKG 12 Lead [EKG Documentation Completion] [] STAT Care 03/30/19 15:39 Active Peripheral IV Care [RC] . DIRECTED Care 03/30/19 15:40 Active CULTURE BLOOD [BC] Stat Lab 03/30/19 15:40 Ordered CULTURE BLOOD [BC] Stat Lab 03/30/19 15:48 Results Piperacillin/Tazobactam [Zosyn] 3.375 gm Med 03/30/19 16:23 Active Sodium Chloride 0.9% [Normal Saline] 100 ml IV ONETIME Sodium Chloride 0.9% [Saline Flush] Med 03/30/19 15:40 Active 10 ml FLUSH ASDIRECTED PRN Blood Culture x2 Reflex Set [OM.PC] Stat Oth 03/30/19 15:40 Ordered Peripheral IV Insertion Adult [OM.PC] Stat Oth 03/30/19 15:39 Ordered Medication Orders Piperacillin Sod/Tazobactam (Sod 3.375 gm/ Sodium Chloride) 100 mls @ 200 mls/ hr IV ONETIME ONE Stop: 03/30/19 16:52 Sodium Chloride (Saline Flush) 10 ml FLUSH ASDIRECTED PRN PRN Reason: Keep Vein Open Labs: Laboratory Tests 03/30/19 03/30/19 03/30/19 Range/Units 15:48 15:48 15:48 WBC 14.0 H (5.0-10.0) 10^3/uL RBC 4.07 L (4.6-6.2) 10^6/uL Hgb 12.8 L (14.0-18.0) g/dL Hct 41.4 (40.0-54.0) % MCV 101.7 H (80-100) fL MCH 31.4 (27.0-34.0) pg MCHC 30.9 L (33.0-35.0) g/dL Plt Count 144 L (150-450) 10^3/uL Neut % (Auto) 81.6 H (42.2-75.2) % Lymph % (Auto) 6.5 L (20.5-50.1) % Mccreary % (Auto) 10.4 H (2-8) % Eos % (Auto) 1.1 (1.0-3.0) % Baso % (Auto) 0.4 (0.0-1.0) % Sodium 136 (135-145) mmol/L Potassium 3.3 L (3.6-5.0) mmol/L Chloride 97 L (101-111) mmol/L Carbon Dioxide 30.0 (21.0-31.0) mmol/L Anion Gap 12.3 BUN 18 (7-18) mg/dL Creatinine 2.9 H D (0.6-1.3) mg/dL Est Cr Clr Drug Dosing 31.59 mL/min Estimated GFR (MDRD) 23 BUN/Creatinine Ratio 6.20 Glucose 117 H (74-105) mg/dL Lactic Acid 0.8 (0.5-2.0) mmol/L Calcium 9.1 (8.4-10.2) mg/dl Phosphorus 2.1 L (2.5-4.6) mg/dL Magnesium 1.8 (1.8-2.5) mg/dL Total Bilirubin 0.7 (0.2-1.0) mg/dL AST 15 (10-42) IU/L ALT 12 (10-60) IU/L Alkaline Phosphatase 79 (42-121) IU/L Troponin I 0.03 H* (0.00-0.02) ng/ml B-Natriuretic Peptide 280 H (0-100) pg/ml Total Protein 8.0 (6.7-8.2) g/dl Albumin 4.3 (3.2-5.5) g/dl Globulin 3.7 Albumin/Globulin Ratio 1.16 Influenza A/b: negative Meds: Medications Generic Name Dose Route Start Last Admin Trade Name Freq PRN Reason Stop Dose Admin Piperacillin Sod/Tazobactam 100 mls @ 200 mls/hr 03/30/19 16:23 Sod 3.375 gm/ Sodium Chloride IV 03/30/19 16:52 ONETIME ONE Sodium Chloride 10 ml 03/30/19 15:40 Saline Flush FLUSH ASDIRECTED PRN Keep Vein Open - Radiology Interpretation Free Text/Narrative:: [facility] Final Radiology Report Call: [phone] assistance Online chat: [email or web address] Name: ANNA CAVAZOS Age: 53Years M Date: 03/30/2019 SSN: -- : [id number] Study: XR CHEST 1 VIEW FRONTAL Requesting Physician: JENNIFER VASQUEZ Images: 1 Addl Studies: Provided Clinical History: Contrast: Contrast Medium: Contrast Amount: Contrast Method: CONFIDENTIALITY STATEMENT This report is intended only for use by the referring physician, and only in accordance with law. If you received this in error, call [phone]. Page 1 of 1 PROCEDURE INFORMATION: Exam: XR Chest, 1 View Exam date and time: 03/30/2019 3:51 PM Age: 53 years old Clinical indication: Shortness of breath TECHNIQUE: Imaging protocol: XR of the chest Views: 1 view. COMPARISON: CR Chest 1V Frontal 03/27/2018 8:31 AM FINDINGS: Lungs: There is nonspecific consolidation in the right lung base, consistent with atelectasis or pneumonia. There is linear atelectatic change in the left lower lung is similar to the prior study. Pleural space: There is a small right pleural fluid collection present. Heart/Mediastinum: The heart demonstrates moderate diffuse enlargement. The pulmonary arteries are not enlarged. Bones/joints: Unremarkable IMPRESSION: 1. Small right pleural effusion. 2. Right basilar atelectasis/pneumonia. 3. Moderate cardiomegaly. Thank you for allowing us to participate in the care of your patient. Dictated and Authenticated by: Jose Martin Meneses MD 03/30/2019 4:00 PM Central Time ([place] & [place]) Departure - Departure Time of Disposition: 16:45 Disposition: DC/Tfer to Acute Hospital 02 Condition: Serious Clinical Impression: Shortness of breath, Morbid obesity Pneumonia Qualifiers: Pneumonia type: due to unspecified organism Laterality: right Lung location: lower lobe of lung Qualified Code(s): J18.9 - Pneumonia, unspecified organism Decubitus ulcer, buttock Qualifiers: Pressure injury stage: unspecified pressure injury stage Laterality: unspecified laterality Qualified Code(s): L89.309 - Pressure ulcer of unspecified buttock, unspecified stage - Discharge Information *PRESCRIPTION DRUG MONITORING PROGRAM REVIEWED*: Not Applicable *COPY OF PRESCRIPTION DRUG MONITORING REPORT IN PATIENT ELISABETH: Not Applicable Forms: ED Department Discharge[facility] Event Note - Evaluation Sepsis Screening Result: No Definite Risk - Focused Exam Vital Signs: Vital Signs Temp Pulse Resp BP Pulse Ox 03/30/19 15:16 96.2 F 93 16 111/51 L 98 Date Exam was Performed: 03/30/19 Time Exam was Performed: 16:38 - My Orders Last 24 Hours: My Active Orders 03/30/19 15:39 EKG 12 Lead [EKG Documentation Completion] [RC] STAT Peripheral IV Insertion Adult [OM.PC] Stat 03/30/19 15:40 Peripheral IV Care [RC] . DIRECTED CULTURE BLOOD [BC] Stat Sodium Chloride 0.9% [Saline Flush] 10 ml FLUSH ASDIRECTED PRN Blood Culture x2 Reflex Set [OM.PC] Stat 03/30/19 15:48 CULTURE BLOOD [BC] Stat 03/30/19 16:23 Piperacillin/Tazobactam [Zosyn] 3.375 gm Sodium Chloride 0.9% [Normal Saline] 100 ml IV ONETIME - Assessment/Plan Last 24 Hours: My Active Orders 03/30/19 15:39 EKG 12 Lead [EKG Documentation Completion] [RC] STAT Peripheral IV Insertion Adult [OM.PC] Stat 03/30/19 15:40 Peripheral IV Care [RC] . DIRECTED CULTURE BLOOD [BC] Stat Sodium Chloride 0.9% [Saline Flush] 10 ml FLUSH ASDIRECTED PRN Blood Culture x2 Reflex Set [OM.PC] Stat 03/30/19 15:48 CULTURE BLOOD [BC] Stat 03/30/19 16:23 Piperacillin/Tazobactam [Zosyn] 3.375 gm Sodium Chloride 0.9% [Normal Saline] 100 ml IV ONETIME
[2019-03-30 16:18] LABS: ANION GAP 12.3
[2019-03-30] MEDS ORDERED: Piperacillin/Tazobactam 3.375 GM in Sodium Chloride 0.9% 100 ML IV ONE (16:23)
== END 2019-03-30 17:25 ==
LOC: DL.ED 14:54
DX: J18.9 Pneumonia, unspecified organism (principal); L89.309 Pressure ulcer of unspecified buttock, unspecified stage; I25.2 Old myocardial infarction; E11.22 Type 2 diabetes mellitus with diabetic chronic kidney disease; I13.2 Hypertensive heart and chronic kidney disease with heart failure and with stage 5 chronic kidney disease, or end stage renal disease; I50.9 Heart failure, unspecified; N18.6 End stage renal disease; I25.10 Atherosclerotic heart disease of native coronary artery without angina pectoris; E11.42 Type 2 diabetes mellitus with diabetic polyneuropathy; E66.9 Obesity, unspecified; Z91.048 Other nonmedicinal substance allergy status; Z88.1 Allergy status to other antibiotic agents; Z79.82 Long term (current) use of aspirin; Z79.02 Long term (current) use of antithrombotics/antiplatelets; Z99.2 Dependence on renal dialysis; Z95.5 Presence of coronary angioplasty implant and graft; Z68.42 Body mass index [BMI] 45.0-49.9, adult
CPT/HCPCS: 36415; 71045; 80053; 83605; 83735; 83880; 84100; 84484; 85025; 87040; 87804; 93005; 96365; 99285; J2543; J7050

== ENCOUNTER 2019-04-08 12:35 | Emergency (ER) | payer MEDICARE, MEDICAID ==
[2019-04-08] MEDS ORDERED: Sodium Chloride 0.9% 10 ML Syringe FLUSH PRN (12:47)
[2019-04-08 12:54] VITALS: BP 98/49; PULSE 105
[2019-04-08 13:12] LABS: ANION GAP 14.8; CHLORIDE,CL 96 mmol/L (101-111); SODIUM,NA 132 mmol/L (135-145)
--- NOTE | 2019-04-08 14:14 | EDM.PDOC ---
ED HPI GENERAL MEDICAL PROBLEM - General Chief Complaint: Respiratory Problem Stated Complaint: UNKNOWN Time Seen by Provider: 04/08/19 12:45 Source of Information: Reports: Patient, Family, RN, RN Notes Reviewed History Limitations: Reports: No Limitations - History of Present Illness INITIAL COMMENTS - FREE TEXT/NARRATIVE: patient presents to ER from dialysis with complaint of shortness of breath, hypotension, chest pains. Patient was transferred to [place] on March 30 with right pleural effusion. Chest tube was placed and [place], patient was discharged on April 07. First run back to dialysis was today patient had just been started on dialysis, 0.7 kg had been removed when blood pressure dropped, patient became very short of breath. Patient was given Midodrine in dialysis, was rinsed pack and given 1 L of fluids. A rapid response was called to dialysis. Onset: Today, Sudden Bilateral Shoulder Pain Score (Numeric/FACES): 7 - Related Data Allergies Allergy/AdvReac Type Severity Reaction Status Date / Time ciprofloxacin Allergy Hives Verified 04/08/19 12:57 tegaderm tape Allergy Blisters Uncoded 04/08/19 12:57 Home Meds: Home Meds Aspirin [Ecotrin] 81 mg PO DAILY 06/27/13 [History] Cinacalcet [Sensipar] 30 mg PO DAILY 06/27/13 [History] Clopidogrel [Plavix] 75 mg PO DAILY 06/27/13 [History] Gabapentin [Neurontin] 300 mg PO TID 06/27/13 [History] Nitroglycerin [Nitrostat] 1 tab SL ASDIRECTED PRN 06/27/13 [History] Simvastatin [Zocor] 20 mg PO BEDTIME 06/27/13 [History] Acetaminophen 2 tab PO Q4HR PRN 07/26/14 [History] Calcium Carbonate/Vitamin D3 [Calcium 600 + Vit D 400 Tablet] 2 each PO BID 05/07 [History] Cyanocobalamin/FA/Pyridoxine [B Complex-Folic Acid] 1 each PO DAILY 07/26/14 [ History] Fludrocortisone [Florinef] 0.1 mg PO WITHBREAKFAST 07/26/14 [History] Metoclopramide [Reglan] 5 mg PO TIDAC 07/26/14 [History] Midodrine 10 mg PO ASDIRECTED 07/26/14 [History] Nystatin [Nystatin Crm] 30 gm TOP BID 07/26/14 [History] Sevelamer Carbonate [Renvela] 2,400 mg PO TID 07/26/14 [History] Sodium Polystyrene Sulfonate [Kayexalate] 15 gm PO ONETIME 07/26/14 [History] oxyCODONE 10 mg PO BID PRN 07/26/14 [History] Sertraline [Zoloft] 50 mg PO DAILY 08/05/14 [History] Bisacodyl [Dulcolax] 10 mg RECTAL BID PRN 11/03/16 [History] Calcium Acetate 667 mg PO TID 11/03/16 [History] Past Medical History HEENT History: Reports: None Cardiovascular History: Reports: CAD, Heart Failure, Hypertension, [place], SOB on Exertion, Stents Respiratory History: Reports: Sleep Apnea, SOB Other Respiratory History: O2 dependent at all times, 2L per n/c Gastrointestinal History: Reports: Cholelithiasis, Diverticulosis, GERD Genitourinary History: Reports: Acute Renal Failure, Chronic Renal Insuffiency, Dialysis, Diabetic Nephropathy, Renal Disease, Other (See Below) Other Genitourinary History: nephrolithiasis Musculoskeletal History: Reports: Fracture, Other (See Below) Other Musculoskeletal History: repair of fractured right kneecap Neurological History: Reports: Neuropathy, Diabetic, Neuropathy, Peripheral Psychiatric History: Reports: Eating Disorders Endocrine/Metabolic History: Reports: Diabetes, Type II, Hyperparathyroidism, IDDM, Obesity/BMI 30+ Hematologic History: Reports: Anemia Immunologic History: Reports: None Oncologic (Cancer) History: Reports: None Dermatologic History: Reports: Chronic Cellulitis - Infectious Disease History Infectious Disease History: Reports: None - Past Surgical History Cardiovascular Surgical History: Reports: Carotid Stents, Coronary Artery Stent Social & Family History - Family History Family Medical History: Noncontributory - Tobacco Use Smoking Status *Q: Former Smoker Years of Tobacco use: 10 Packs/Tins Daily: 2 Used Tobacco, but Quit: Yes Month/Year Tobacco Last Used: 1989 Second Hand Smoke Exposure: No - Caffeine Use Caffeine Use: Reports: Soda - Recreational Drug Use Recreational Drug Use: No - Living Situation & Occupation Living situation: Reports: , Extended Care Facility Occupation: Disabled ED ROS GENERAL - Review of Systems Review Of Systems: Comprehensive ROS is negative, except as noted in HPI. ED EXAM, GENERAL - Physical Exam Exam: See Below Exam Limited By: No Limitations General Appearance: Alert, WD/WN, Moderate Distress Eye Exam: Bilateral Eye: EOMI, Normal Inspection Ears: Normal External Exam, Hearing Grossly Normal Nose: Normal Inspection Throat/Mouth: Normal Inspection, Normal Voice, No Airway Compromise Head: Atraumatic, Normocephalic Neck: Normal Inspection, Supple, Non-Tender, Full Range of Motion Respiratory/Chest: Respiratory Distress, Decreased Breath Sounds, Crackles Cardiovascular: Normal Peripheral Pulses, Regular Rate, Rhythm, No Gallop, No JVD, No Murmur, No Rub Peripheral Pulses: 1+: Radial (L), Radial (R) GI/Abdominal: Normal Bowel Sounds, Soft, Non-Tender (Male) Exam: Deferred Rectal (Males) Exam: Deferred Back Exam: Normal Inspection, Full Range of Motion, NT Extremities: Normal Inspection, Normal Range of Motion, Non-Tender, Normal Capillary Refill, No Pedal Edema Neurological: Alert, Oriented, CN II-XII Intact, Normal Cognition Psychiatric: Depressed Mood, Flat Affect Skin Exam: Warm, Dry, Intact, Normal Color, No Rash Lymphatic: No Adenopathy Course - Vital Signs Last Recorded V/S: Last Vital Signs Temp 97.5 F 04/08/19 12:44 Pulse 105 H 04/08/19 12:44 Resp 20 04/08/19 12:44 BP 98/49 L 04/08/19 12:44 Pulse Ox 86 L 04/08/19 12:44 - Orders/Labs/Meds Orders: Active Orders 24 hr Category Date Time Status EKG Documentation Completion [RC] STAT Care 04/08/19 12:47 Active Peripheral IV Care [RC] . DIRECTED Care 04/08/19 12:49 Active Chest 1V Frontal [CR] Stat Exams 04/08/19 12:48 Taken CULTURE BLOOD [BC] Stat Lab 04/08/19 13:08 Received CULTURE BLOOD [BC] Stat Lab 04/08/19 13:25 Results Sodium Chloride 0.9% [Saline Flush] Med 04/08/19 12:47 Active 10 ml FLUSH ASDIRECTED PRN Blood Culture x2 Reflex Set [OM.PC] Stat Oth 04/08/19 12:48 Ordered Peripheral IV Insertion Adult [OM.PC] Stat Oth 04/08/19 12:47 Ordered Medication Orders Sodium Chloride (Saline Flush) 10 ml FLUSH ASDIRECTED PRN PRN Reason: Keep Vein Open Last Admin: 04/08/19 13:21 Dose: 10 ml Labs: Laboratory Tests 04/08/19 04/08/19 04/08/19 Range/Units 12:42 12:42 12:42 WBC 11.6 H (5.0-10.0) 10^3/uL RBC 4.11 L (4.6-6.2) 10^6/uL Hgb 13.0 L (14.0-18.0) g/dL Hct 41.5 (40.0-54.0) % MCV 101.0 H (80-100) fL MCH 31.6 (27.0-34.0) pg MCHC 31.3 L (33.0-35.0) g/dL Plt Count 137 L (150-450) 10^3/uL Neut % (Auto) 87.0 H (42.2-75.2) % Lymph % (Auto) 8.7 L (20.5-50.1) % [place] % (Auto) 3.2 (2-8) % Eos % (Auto) 0.8 L (1.0-3.0) % Baso % (Auto) 0.3 (0.0-1.0) % Sodium 132 L (135-145) mmol/L Potassium 3.8 (3.6-5.0) mmol/L Chloride 96 L (101-111) mmol/L Carbon Dioxide 25.0 (21.0-31.0) mmol/L Anion Gap 14.8 BUN 30 H (7-18) mg/dL Creatinine 3.6 H (0.6-1.3) mg/dL Est Cr Clr Drug Dosing 25.45 mL/min Estimated GFR (MDRD) 18 BUN/Creatinine Ratio 8.33 Glucose 197 H (74-105) mg/dL Lactic Acid 1.6 (0.5-2.0) mmol/L Calcium 8.5 (8.4-10.2) mg/dl Total Bilirubin 0.7 (0.2-1.0) mg/dL AST 17 (10-42) IU/L ALT 13 (10-60) IU/L Alkaline Phosphatase 78 (42-121) IU/L Troponin I < 0.02 (0.00-0.02) ng/ml B-Natriuretic Peptide 256 H (0-100) pg/ml Total Protein 7.4 (6.7-8.2) g/dl Albumin 4.0 (3.2-5.5) g/dl Globulin 3.4 Albumin/Globulin Ratio 1.18 Meds: Medications Generic Name Dose Route Start Last Admin Trade Name Freq PRN Reason Stop Dose Admin Sodium Chloride 10 ml 04/08/19 12:47 04/08/19 13:21 Saline Flush FLUSH 10 ml ASDIRECTED PRN Administration Keep Vein Open - Radiology Interpretation Free Text/Narrative:: Chest xray: FINDINGS: Limitations: The study is technically limited by the patient's body habitus. Lungs: Poor inspiration. Decreased lung volumes. Linear atelectasis in the left lung base. Nonspecific right basilar airspace disease. Pleural space: Small right pleural effusion, not significantly changed. Heart/Mediastinum: The cardiac silhouette is enlarged. The mediastinum is unchanged. Bones/joints: No acute osseous abnormality. IMPRESSION: No significant change when compared to CR Chest 1V Frontal 03/30/2019 3:51 PM. Thank you for allowing us to participate in the care of your patient. Dictated and Authenticated by: Mario Crump MD 04/08/2019 1:51 PM Central Time ([place] & [place]) See rad report - Re-Assessments/Exams Free Text/Narrative Re-Assessment/Exam: 04/08/19 14:18 Patient case discussed with Dr. Perez who agreed to accept the patient for transfer to [facility]. Departure - Departure Time of Disposition: 14:19 Disposition: DC/Tfer to Acute Hospital 02 Condition: Fair Clinical Impression: Pleural effusion, ESRD (end stage renal disease) on dialysis - Discharge Information *PRESCRIPTION DRUG MONITORING PROGRAM REVIEWED*: No *COPY OF PRESCRIPTION DRUG MONITORING REPORT IN PATIENT ELISABETH: No Forms: ED Department Discharge, Interfacility Transfer [facility] Sepsis Event Note - Evaluation Sepsis Screening Result: No Definite Risk - Focused Exam Vital Signs: Vital Signs Temp Pulse Resp BP Pulse Ox 04/08/19 12:44 97.5 F 105 H 20 98/49 L 86 L Date Exam was Performed: 04/08/19 Time Exam was Performed: 14:14 - My Orders Last 24 Hours: My Active Orders 04/08/19 12:47 EKG Documentation Completion [RC] STAT Sodium Chloride 0.9% [Saline Flush] 10 ml FLUSH ASDIRECTED PRN Peripheral IV Insertion Adult [OM.PC] Stat 04/08/19 12:48 Chest 1V Frontal [CR] Stat Blood Culture x2 Reflex Set [OM.PC] Stat 04/08/19 12:49 Peripheral IV Care [RC] . DIRECTED 04/08/19 13:08 CULTURE BLOOD [BC] Stat 04/08/19 13:25 CULTURE BLOOD [BC] Stat - Assessment/Plan Last 24 Hours: My Active Orders 04/08/19 12:47 EKG Documentation Completion [RC] STAT Sodium Chloride 0.9% [Saline Flush] 10 ml FLUSH ASDIRECTED PRN Peripheral IV Insertion Adult [OM.PC] Stat 04/08/19 12:48 Chest 1V Frontal [CR] Stat Blood Culture x2 Reflex Set [OM.PC] Stat 04/08/19 12:49 Peripheral IV Care [RC] . DIRECTED 04/08/19 13:08 CULTURE BLOOD [BC] Stat 04/08/19 13:25 CULTURE BLOOD [BC] Stat
== END 2019-04-08 14:46 ==
LOC: DL.ED 12:35
DX: J90 Pleural effusion, not elsewhere classified (principal); I25.10 Atherosclerotic heart disease of native coronary artery without angina pectoris; I25.2 Old myocardial infarction; E11.22 Type 2 diabetes mellitus with diabetic chronic kidney disease; I13.2 Hypertensive heart and chronic kidney disease with heart failure and with stage 5 chronic kidney disease, or end stage renal disease; N18.6 End stage renal disease; I50.9 Heart failure, unspecified; E66.9 Obesity, unspecified; Z88.1 Allergy status to other antibiotic agents; Z91.048 Other nonmedicinal substance allergy status; Z79.82 Long term (current) use of aspirin; Z79.02 Long term (current) use of antithrombotics/antiplatelets; Z95.5 Presence of coronary angioplasty implant and graft; Z99.2 Dependence on renal dialysis; Z68.41 Body mass index [BMI] 40.0-44.9, adult; Z79.899 Other long term (current) drug therapy; Z87.891 Personal history of nicotine dependence
CPT/HCPCS: 36415; 71045; 80053; 83605; 83880; 84484; 85025; 87040; 93005; 99285-25

== ENCOUNTER 2019-04-15 22:45 | Emergency (ER) | payer MEDICARE, MEDICAID ==
[2019-04-15 23:40] LABS: ANION GAP 12.7; CHLORIDE,CL 99 mmol/L (101-111); SODIUM,NA 138 mmol/L (135-145)
[2019-04-16 01:12] VITALS: BP 135/74; PULSE 85
--- NOTE | 2019-04-16 06:52 | EDM.PDOC ---
ED HPI GENERAL MEDICAL PROBLEM - General Chief Complaint: Respiratory Problem Stated Complaint: EVENTIDE Time Seen by Provider: 04/15/19 23:00 Source of Information: Reports: Patient, Family, Group Home Records History Limitations: Reports: No Limitations - History of Present Illness INITIAL COMMENTS - FREE TEXT/NARRATIVE: ED with c/o feeling warm, and SOB. NH note difficulty getting sats greater than 60% Recent hospitalization for pneumonia and CHF. During hospital stay edema improved. Dry weight 150K Back Pain Score (Numeric/FACES): 4 - Related Data Allergies Allergy/AdvReac Type Severity Reaction Status Date / Time ciprofloxacin Allergy Hives Verified 04/15/19 23:06 tegaderm tape Allergy Blisters Uncoded 04/15/19 23:06 Home Meds: Home Meds Aspirin [Ecotrin] 81 mg PO DAILY 06/27/13 [History] Cinacalcet [Sensipar] 30 mg PO DAILY 06/27/13 [History] Clopidogrel [Plavix] 75 mg PO DAILY 06/27/13 [History] Gabapentin [Neurontin] 300 mg PO TID 06/27/13 [History] Nitroglycerin [Nitrostat] 1 tab SL ASDIRECTED PRN 06/27/13 [History] Simvastatin [Zocor] 20 mg PO BEDTIME 06/27/13 [History] Acetaminophen 2 tab PO Q4HR PRN 07/26/14 [History] Calcium Carbonate/Vitamin D3 [Calcium 600 + Vit D 400 Tablet] 2 each PO BID 05/07 [History] Cyanocobalamin/FA/Pyridoxine [B Complex-Folic Acid] 1 each PO DAILY 07/26/14 [ History] Fludrocortisone [Florinef] 0.1 mg PO WITHBREAKFAST 07/26/14 [History] Metoclopramide [Reglan] 5 mg PO TIDAC 07/26/14 [History] Midodrine 5 mg PO ASDIRECTED 07/26/14 [History] Nystatin [Nystatin Crm] 30 gm TOP BID 07/26/14 [History] Sevelamer Carbonate [Renvela] 2,400 mg PO TID 07/26/14 [History] Sodium Polystyrene Sulfonate [Kayexalate] 15 gm PO ONETIME 07/26/14 [History] oxyCODONE 10 mg PO BID PRN 07/26/14 [History] Bisacodyl [Dulcolax] 10 mg RECTAL BID PRN 11/03/16 [History] Calcium Acetate 667 mg PO TID 11/03/16 [History] Fluticasone Propionate [Flonase] 2 sprays NASBOTH DAILY PRN 04/15/19 [History] Pantoprazole Sodium [Protonix] 20 mg PO DAILY 04/15/19 [History] Sertraline [Zoloft] 37.5 mg PO DAILY 04/15/19 [History] DULoxetine [Cymbalta] 60 mg PO DAILY 04/16/19 [History] Past Medical History HEENT History: Reports: None Cardiovascular History: Reports: CAD, Heart Failure, Hypertension, [place], SOB on Exertion, Stents Respiratory History: Reports: Sleep Apnea, SOB Other Respiratory History: O2 dependent at all times, 2L per n/c Gastrointestinal History: Reports: Cholelithiasis, Diverticulosis, GERD Genitourinary History: Reports: Acute Renal Failure, Chronic Renal Insuffiency, Dialysis, Diabetic Nephropathy, Renal Disease, Other (See Below) Other Genitourinary History: nephrolithiasis Musculoskeletal History: Reports: Fracture, Other (See Below) Other Musculoskeletal History: repair of fractured right kneecap Neurological History: Reports: Neuropathy, Diabetic, Neuropathy, Peripheral Psychiatric History: Reports: Eating Disorders Endocrine/Metabolic History: Reports: Diabetes, Type II, Hyperparathyroidism, IDDM, Obesity/BMI 30+ Hematologic History: Reports: Anemia Immunologic History: Reports: None Oncologic (Cancer) History: Reports: None Dermatologic History: Reports: Chronic Cellulitis - Infectious Disease History Infectious Disease History: Reports: None - Past Surgical History Cardiovascular Surgical History: Reports: Carotid Stents, Coronary Artery Stent Social & Family History - Family History Family Medical History: Noncontributory - Tobacco Use Smoking Status *Q: Never Smoker - Caffeine Use Caffeine Use: Reports: Soda - Recreational Drug Use Recreational Drug Use: No - Living Situation & Occupation Living situation: Reports: , Extended Care Facility Occupation: Disabled ED ROS GENERAL - Review of Systems Review Of Systems: Comprehensive ROS is negative, except as noted in HPI. Constitutional: Reports: Fever, Malaise, Weakness HEENT: Reports: No Symptoms Respiratory: Reports: Shortness of Breath, Cough Cardiovascular: Reports: Edema. Denies: Chest Pain Endocrine: Reports: No Symptoms GI/Abdominal: Reports: No Symptoms : Reports: No Symptoms Musculoskeletal: Reports: No Symptoms Skin: Reports: No Symptoms Neurological: Reports: No Symptoms ED EXAM, GENERAL - Physical Exam Exam: See Below Exam Limited By: No Limitations General Appearance: Alert, No Apparent Distress, Obese (morbid) Eye Exam: Bilateral Eye: EOMI Ears: Normal External Exam Nose: Normal Inspection Throat/Mouth: Normal Inspection Head: Atraumatic, Normocephalic Neck: Normal Inspection Respiratory/Chest: Decreased Breath Sounds ( minimal bilateral lower 1/3). No: Normal Breath Sounds (diminished), Wheezing Cardiovascular: Normal Peripheral Pulses, Regular Rate, Rhythm. No: No Edema ( greater right lower) GI/Abdominal: Normal Bowel Sounds Extremities: Other (transfer via dianne lift). No: Limited Range of Motion Psychiatric: Flat Affect Skin Exam: Warm, Dry, Intact, Normal Color Course - Vital Signs Last Recorded V/S: Last Vital Signs Temp 97.3 F 04/16/19 01:11 Pulse 85 04/16/19 01:11 Resp 21 H 04/16/19 01:11 BP 135/74 04/16/19 01:11 Pulse Ox 97 04/16/19 01:11 - Orders/Labs/Meds Labs: Laboratory Tests 04/15/19 04/15/19 04/15/19 Range/Units 23:15 23:15 23:15 WBC 10.7 H (5.0-10.0) 10^3/uL RBC 4.03 L (4.6-6.2) 10^6/uL Hgb 12.7 L (14.0-18.0) g/dL Hct 41.5 (40.0-54.0) % MCV 103.0 H (80-100) fL MCH 31.5 (27.0-34.0) pg MCHC 30.6 L (33.0-35.0) g/dL Plt Count 124 L (150-450) 10^3/uL Neut % (Auto) 80.0 H (42.2-75.2) % Lymph % (Auto) 8.9 L (20.5-50.1) % [place] % (Auto) 8.2 H (2-8) % Eos % (Auto) 2.2 (1.0-3.0) % Baso % (Auto) 0.7 (0.0-1.0) % Sodium 138 (135-145) mmol/L Potassium 3.7 (3.6-5.0) mmol/L Chloride 99 L (101-111) mmol/L Carbon Dioxide 30.0 (21.0-31.0) mmol/L Anion Gap 12.7 BUN 21 H (7-18) mg/dL Creatinine 3.6 H (0.6-1.3) mg/dL Est Cr Clr Drug Dosing 25.45 mL/min Estimated GFR (MDRD) 18 BUN/Creatinine Ratio 5.83 Glucose 204 H (74-105) mg/dL Lactic Acid 1.1 (0.5-2.0) mmol/L Calcium 9.1 (8.4-10.2) mg/dl Magnesium 1.7 L (1.8-2.5) mg/dL Total Bilirubin 0.7 (0.2-1.0) mg/dL AST 22 (10-42) IU/L ALT 14 (10-60) IU/L Alkaline Phosphatase 95 (42-121) IU/L Troponin I < 0.02 (0.00-0.02) ng/ml B-Natriuretic Peptide 603 H (0-100) pg/ml Total Protein 7.8 (6.7-8.2) g/dl Albumin 4.2 (3.2-5.5) g/dl Globulin 3.6 Albumin/Globulin Ratio 1.17 Amylase 221 H (28-100) U/L Departure - Departure Time of Disposition: 01:20 Disposition: DC/Tfer to Acute Hospital 02 Condition: Undetermined Clinical Impression: Congestive heart failure Qualifiers: Heart failure type: unspecified Heart failure chronicity: acute on chronic Qualified Code(s): I50.9 - Heart failure, unspecified - Discharge Information *PRESCRIPTION DRUG MONITORING PROGRAM REVIEWED*: No *COPY OF PRESCRIPTION DRUG MONITORING REPORT IN PATIENT ELISABETH: No Referrals: Gagandeep Moran MD [Primary Care Provider] - Forms: ED Department Discharge Sepsis Event Note - Evaluation Sepsis Screening Result: No Definite Risk - Focused Exam Date Exam was Performed: 04/17/19 Time Exam was Performed: 03:17
== END 2019-04-16 01:59 ==
LOC: DL.ED 22:45
DX: I13.2 Hypertensive heart and chronic kidney disease with heart failure and with stage 5 chronic kidney disease, or end stage renal disease (principal); I50.9 Heart failure, unspecified; E11.22 Type 2 diabetes mellitus with diabetic chronic kidney disease; N18.6 End stage renal disease; E11.42 Type 2 diabetes mellitus with diabetic polyneuropathy; E11.21 Type 2 diabetes mellitus with diabetic nephropathy; E66.9 Obesity, unspecified; I25.10 Atherosclerotic heart disease of native coronary artery without angina pectoris; I25.2 Old myocardial infarction; Z88.1 Allergy status to other antibiotic agents; Z91.048 Other nonmedicinal substance allergy status; Z79.82 Long term (current) use of aspirin; Z99.2 Dependence on renal dialysis; Z95.5 Presence of coronary angioplasty implant and graft; Z68.42 Body mass index [BMI] 45.0-49.9, adult
CPT/HCPCS: 36415; 71045; 80053; 82150; 83605; 83735; 83880; 84484; 85025; 87040; 93005; 99285-25

== ENCOUNTER 2019-06-20 12:05 | Emergency (ER) | payer MEDICARE, MEDICAID ==
--- NOTE | 2019-06-20 12:44 | EDM.PDOC ---
ED HPI GENERAL MEDICAL PROBLEM - General Stated Complaint: SHORTNESS OF BREATH-COMING FROM DIALYSIS Time Seen by Provider: 06/20/19 12:30 Source of Information: Reports: Patient History Limitations: Reports: No Limitations - History of Present Illness INITIAL COMMENTS - FREE TEXT/NARRATIVE: This 53 yo male patient was sent to the ED from Dialysis due to increased shortness of breath. The patient reports his shortness of breath started about 1 hour prior to his arrival in the ED during his dialysis run. The patient reports he fell asleep in is chair last night and his oxygen tank ran out of oxygen (slept without oxygen for an unknown amount of time). The patient reports he has been having intermittent pains in his right arm and right shoulder over the past week (since he had his fistula worked on). The patient continues to report increased shortness of breath and requires to be seated straight upright in order to get enough air. The patient denies any recent falls or injuries. The patient also denies any recent illnesses. Onset: Today Onset Date: 06/20/19 Onset Time: 11:30 Duration: Constant Location: Reports: Chest Quality: Reports: Other Severity: Moderate Improves with: Reports: None Worsens with: Reports: None Context: Reports: Other Associated Symptoms: Reports: No Other Symptoms - Related Data Allergies Allergy/AdvReac Type Severity Reaction Status Date / Time ciprofloxacin Allergy Hives Verified 04/15/19 23:06 tegaderm tape Allergy Blisters Uncoded 04/15/19 23:06 Home Meds: Home Meds Aspirin [Ecotrin] 81 mg PO DAILY 06/27/13 [History] Cinacalcet [Sensipar] 30 mg PO DAILY 06/27/13 [History] Clopidogrel [Plavix] 75 mg PO DAILY 06/27/13 [History] Gabapentin [Neurontin] 300 mg PO TID 06/27/13 [History] Nitroglycerin [Nitrostat] 1 tab SL ASDIRECTED PRN 06/27/13 [History] Simvastatin [Zocor] 20 mg PO BEDTIME 06/27/13 [History] Acetaminophen 2 tab PO Q4HR PRN 07/26/14 [History] Calcium Carbonate/Vitamin D3 [Calcium 600 + Vit D 400 Tablet] 2 each PO BID 05/07 [History] Cyanocobalamin/Folic AC/Vit B6 [B Complex-Folic Acid] 1 each PO DAILY 07/26/14 [ History] Fludrocortisone [Florinef] 0.1 mg PO WITHBREAKFAST 07/26/14 [History] Metoclopramide [Reglan] 5 mg PO TIDAC 07/26/14 [History] Midodrine 5 mg PO ASDIRECTED 07/26/14 [History] Nystatin [Nystatin Crm] 30 gm TOP BID 07/26/14 [History] Sevelamer Carbonate [Renvela] 2,400 mg PO TID 07/26/14 [History] Sodium Polystyrene Sulfonate [Kayexalate] 15 gm PO ONETIME 07/26/14 [History] oxyCODONE 10 mg PO BID PRN 07/26/14 [History] Bisacodyl [Dulcolax] 10 mg RECTAL BID PRN 11/03/16 [History] Calcium Acetate 667 mg PO TID 11/03/16 [History] Fluticasone Propionate [Flonase] 2 sprays NASBOTH DAILY PRN 04/15/19 [History] Pantoprazole Sodium [Protonix] 20 mg PO DAILY 04/15/19 [History] Sertraline [Zoloft] 37.5 mg PO DAILY 04/15/19 [History] DULoxetine [Cymbalta] 60 mg PO DAILY 04/16/19 [History] Past Medical History HEENT History: Reports: None Cardiovascular History: Reports: CAD, Heart Failure, Hypertension, [place], SOB on Exertion, Stents Respiratory History: Reports: Sleep Apnea, SOB Other Respiratory History: O2 dependent at all times, 2L per n/c Gastrointestinal History: Reports: Cholelithiasis, Diverticulosis, GERD Genitourinary History: Reports: Acute Renal Failure, Chronic Renal Insuffiency, Dialysis, Diabetic Nephropathy, Renal Disease, Other (See Below) Other Genitourinary History: nephrolithiasis Musculoskeletal History: Reports: Fracture, Other (See Below) Other Musculoskeletal History: repair of fractured right kneecap Neurological History: Reports: Neuropathy, Diabetic, Neuropathy, Peripheral Psychiatric History: Reports: Eating Disorders Endocrine/Metabolic History: Reports: Diabetes, Type II, Hyperparathyroidism, IDDM, Obesity/BMI 30+ Hematologic History: Reports: Anemia Immunologic History: Reports: None Oncologic (Cancer) History: Reports: None Dermatologic History: Reports: Chronic Cellulitis - Infectious Disease History Infectious Disease History: Reports: None - Past Surgical History Cardiovascular Surgical History: Reports: Carotid Stents, Coronary Artery Stent Social & Family History - Family History Family Medical History: Noncontributory - Caffeine Use Caffeine Use: Reports: Soda - Living Situation & Occupation Living situation: Reports: , Extended Care Facility Occupation: Disabled ED ROS GENERAL - Review of Systems Review Of Systems: Comprehensive ROS is negative, except as noted in HPI. ED EXAM, GENERAL - Physical Exam Exam: See Below Exam Limited By: No Limitations General Appearance: Alert, WD/WN, Moderate Distress, Obese Eye Exam: Bilateral Eye: EOMI, Normal Inspection, PERRL Ears: Normal External Exam, Normal Canal, Hearing Grossly Normal, Normal TMs Nose: Normal Inspection, Normal Mucosa, No Blood Throat/Mouth: Normal Inspection Head: Atraumatic, Normocephalic Respiratory/Chest: No Accessory Muscle Use, Chest Non-Tender, Decreased Breath Sounds Cardiovascular: Normal Peripheral Pulses, Regular Rate, Rhythm, No Edema, No Gallop, No JVD, No Murmur, No Rub GI/Abdominal: Normal Bowel Sounds, Soft, Non-Tender, No Organomegaly, No Distention, No Abnormal Bruit, No Mass (Male) Exam: Deferred Rectal (Males) Exam: Deferred Back Exam: Normal Inspection, Full Range of Motion, NT Extremities: Normal Inspection, Normal Range of Motion, Arm Pain (intermittent right arm pains for the past week) Neurological: Alert, Oriented, CN II-XII Intact, Normal Cognition, Other (The patient requires a Aristeo Lift. ) Psychiatric: Normal Affect, Normal Mood Skin Exam: Warm, Dry, Intact, Normal Color, No Rash Lymphatic: No Adenopathy Course - Vital Signs Last Recorded V/S: Last Vital Signs Temp 36.4 C 06/20/19 13:14 Pulse 97 06/20/19 13:14 Resp 20 06/20/19 13:14 BP 122/79 06/20/19 13:14 Pulse Ox 84 L 06/20/19 13:14 - Orders/Labs/Meds Orders: Active Orders 24 hr Category Date Time Status EKG Documentation Completion [RC] URGENT Care 06/20/19 12:18 Ordered CULTURE BLOOD [BC] Stat Lab 06/20/19 12:18 Ordered cefTRIAXone [Rocephin] 1 gm Med 06/20/19 13:55 Ordered Sodium Chloride 0.9% [Normal Saline] 50 ml IV ONETIME Medication Orders Ceftriaxone Sodium 1 gm/ (Sodium Chloride) 50 mls @ 100 mls/hr IV ONETIME ONE Stop: 06/20/19 14:24 Labs: Laboratory Tests 06/20/19 06/20/19 06/20/19 Range/Units 12:42 12:42 12:42 WBC 13.2 H (5.0-10.0) 10^3/uL RBC 3.84 L (4.6-6.2) 10^6/uL Hgb 12.2 L (14.0-18.0) g/dL Hct 40.1 (40.0-54.0) % MCV 104.4 H (80-100) fL MCH 31.8 (27.0-34.0) pg MCHC 30.4 L (33.0-35.0) g/dL Plt Count 129 L (150-450) 10^3/uL Neut % (Auto) 89.6 H (42.2-75.2) % Lymph % (Auto) 4.4 L (20.5-50.1) % [place] % (Auto) 4.4 (2-8) % Eos % (Auto) 1.4 (1.0-3.0) % Baso % (Auto) 0.2 (0.0-1.0) % Sodium (136-145) mmol/L Potassium (3.5-5.1) mmol/L Chloride (98-107) mmol/L Carbon Dioxide (21-32) mmol/L Anion Gap (7-13) mEq/L BUN (7-18) mg/dL Creatinine (0.70-1.30) mg/dL Est Cr Clr Drug Dosing mL/min Estimated GFR (MDRD) BUN/Creatinine Ratio (No establ ref range) Glucose (74-99) mg/dL Lactic Acid 0.8 (0.4-2.0) mmol/L Calcium (8.5-10.1) mg/dL Total Bilirubin (0.2-1.0) mg/dL AST (15-37) U/L ALT (16-63) U/L Alkaline Phosphatase (46-116) U/L Troponin I (0.000-0.056) ng/mL B-Natriuretic Peptide 287 H (0-100) pg/ml Total Protein (6.4-8.2) g/dL Albumin (3.4-5.0) g/dL Globulin Albumin/Globulin Ratio 06/19/ Range/Units 12:42 WBC (5.0-10.0) 10^3/uL RBC (4.6-6.2) 10^6/uL Hgb (14.0-18.0) g/dL Hct (40.0-54.0) % MCV (80-100) fL MCH (27.0-34.0) pg MCHC (33.0-35.0) g/dL Plt Count (150-450) 10^3/uL Neut % (Auto) (42.2-75.2) % Lymph % (Auto) (20.5-50.1) % [place] % (Auto) (2-8) % Eos % (Auto) (1.0-3.0) % Baso % (Auto) (0.0-1.0) % Sodium 141 (136-145) mmol/L Potassium 4.1 (3.5-5.1) mmol/L Chloride 101 (98-107) mmol/L Carbon Dioxide 32 (21-32) mmol/L Anion Gap 12.1 (7-13) mEq/L BUN 39 H (7-18) mg/dL Creatinine 5.50 H* (0.70-1.30) mg/dL Est Cr Clr Drug Dosing 16.66 mL/min Estimated GFR (MDRD) 11 BUN/Creatinine Ratio 7.1 (No establ ref range) Glucose 138 H (74-99) mg/dL Lactic Acid (0.4-2.0) mmol/L Calcium 8.4 L (8.5-10.1) mg/dL Total Bilirubin 0.6 (0.2-1.0) mg/dL AST 11 L (15-37) U/L ALT < 6 L (16-63) U/L Alkaline Phosphatase 128 H (46-116) U/L Troponin I 0.031 (0.000-0.056) ng/mL B-Natriuretic Peptide (0-100) pg/ml Total Protein 7.6 (6.4-8.2) g/dL Albumin 3.2 L (3.4-5.0) g/dL Globulin 4.4 Albumin/Globulin Ratio 0.73 Meds: Medications Generic Name Dose Route Start Last Admin Trade Name Bettie PRN Reason Stop Dose Admin Ceftriaxone Sodium 1 gm/ 50 mls @ 100 mls/hr 06/20/19 13:55 Sodium Chloride IV 06/20/19 14:24 ONETIME ONE Departure - Departure Time of Disposition: 14:30 Disposition: Home, Self-Care 01 Condition: Fair Clinical Impression: Bronchitis - Discharge Information *PRESCRIPTION DRUG MONITORING PROGRAM REVIEWED*: Not Applicable *COPY OF PRESCRIPTION DRUG MONITORING REPORT IN PATIENT ELISABETH: Not Applicable Instructions: Acute Bronchitis, Adult, [id number] Forms: ED Department Discharge Care Plan Goals: The patient was advised of the examination, lab and x-ray results during the visit. The patient was given an IV dose of Rocephin while in the ED. The patient was discharged with a script for Azithromycin (250 mg) #6 to take 2 by mouth on day 1 and 1 by mouth on days 2-5. If the patient has any additional symptoms or concerns, the patient should either return to the emergency department or visit his primary care facility. Sepsis Event Note - Focused Exam Vital Signs: Vital Signs Temp Pulse Resp BP Pulse Ox 06/20/19 13:14 36.4 C 97 20 122/79 84 L Date Exam was Performed: 06/20/19 Time Exam was Performed: 13:57 - My Orders Last 24 Hours: My Active Orders 06/20/19 12:18 EKG Documentation Completion [RC] URGENT CULTURE BLOOD [BC] Stat 06/20/19 13:55 cefTRIAXone [Rocephin] 1 gm Sodium Chloride 0.9% [Normal Saline] 50 ml IV ONETIME - Assessment/Plan Last 24 Hours: My Active Orders 06/20/19 12:18 EKG Documentation Completion [RC] URGENT CULTURE BLOOD [BC] Stat 06/20/19 13:55 cefTRIAXone [Rocephin] 1 gm Sodium Chloride 0.9% [Normal Saline] 50 ml IV ONETIME
[2019-06-20 13:12] LABS: ANION GAP 12.1 mEq/L (7-13); CHLORIDE,CL 101 mmol/L (98-107); SODIUM,NA 141 mmol/L (136-145)
[2019-06-20 13:15] VITALS: BP 122/79; PULSE 97
--- NOTE | 2019-06-20 13:49 | CR ---
EXAMINATION: Chest 1V Frontal SEX: Male AGE: 53 years Exam. CLINICAL HISTORY: 53-year-old diabetic male short of breath. INTERPRETATION: Abnormal. 1. Generally poor inspiratory effort with chronic bibasilar atelectasis and/or infiltrate unchanged since 15 April 2019. 2. Large bore right supraclavicular central venous catheter (dialysis?). 3. Prominent cardiac silhouette accentuated by less than optimal inspiration this morbidly obese patient also unchanged. 4. No new pulmonary vascular congestion, cephalization of flow, alveolar edema or dependent pleural fluid accumulation. 5. No new lung mass or focal lobar consolidation. 6. No pneumothorax or pneumomediastinum. Midline tracheal bronchial airway unremarkable.
[2019-06-20] MEDS ORDERED: cefTRIAXone 1 GM in Sodium Chloride 0.9% 50 ML IV ONE (13:55)
== END 2019-06-20 15:04 | disposition home or self-care (01) ==
LOC: DL.ED 12:05
DX: J40 Bronchitis, not specified as acute or chronic (principal); I25.10 Atherosclerotic heart disease of native coronary artery without angina pectoris; I11.0 Hypertensive heart disease with heart failure; I50.9 Heart failure, unspecified; I25.2 Old myocardial infarction; I12.9 Hypertensive chronic kidney disease with stage 1 through stage 4 chronic kidney disease, or unspecified chronic kidney disease; N18.9 Chronic kidney disease, unspecified; E11.21 Type 2 diabetes mellitus with diabetic nephropathy; E11.42 Type 2 diabetes mellitus with diabetic polyneuropathy; Z79.82 Long term (current) use of aspirin; Z79.02 Long term (current) use of antithrombotics/antiplatelets; Z99.81 Dependence on supplemental oxygen; Z88.1 Allergy status to other antibiotic agents
CPT/HCPCS: 36415; 71045; 80053; 83605; 83880; 84484; 85025; 87040; 93005; 96365; 99283; 99285; J0696; J7050

== ENCOUNTER 2019-06-21 15:25 | Emergency (ER) | payer MEDICARE, MEDICAID, OTHER ==
--- NOTE | 2019-06-21 16:10 | EDM.PDOC ---
ED HPI GENERAL MEDICAL PROBLEM - General Chief Complaint: General Stated Complaint: AMBULANCE Time Seen by Provider: 06/21/19 15:48 Source of Information: Reports: Patient, EMS, [facility] Records History Limitations: Reports: No Limitations - History of Present Illness INITIAL COMMENTS - FREE TEXT/NARRATIVE: This 53 yo male patient was brought to the ED by [facility] due to a syncope episode while at the senior living. The patient was seen in the ED with an episode of near syncope during dialysis. Prior to sending the patient to the ED, Patricia collected a Covid test from the patient. Onset: Gradual Duration: Day(s): Location: Reports: Generalized Quality: Reports: Other Severity: Severe Improves with: Reports: None Worsens with: Reports: None Context: Reports: Other Associated Symptoms: Reports: Syncope, Other - Related Data Allergies Allergy/AdvReac Type Severity Reaction Status Date / Time ciprofloxacin Allergy Hives Verified 06/21/19 16:26 tegaderm tape Allergy Blisters Uncoded 04/15/19 23:06 Home Meds: Home Meds Aspirin [Ecotrin] 81 mg PO DAILY 06/27/13 [History] Cinacalcet [Sensipar] 30 mg PO DAILY 06/27/13 [History] Clopidogrel [Plavix] 75 mg PO DAILY 06/27/13 [History] Gabapentin [Neurontin] 300 mg PO TID 06/27/13 [History] Nitroglycerin [Nitrostat] 1 tab SL ASDIRECTED PRN 06/27/13 [History] Simvastatin [Zocor] 20 mg PO BEDTIME 06/27/13 [History] Acetaminophen 2 tab PO Q4HR PRN 07/26/14 [History] Calcium Carbonate/Vitamin D3 [Calcium 600 + Vit D 400 Tablet] 2 each PO BID 05/07 [History] Cyanocobalamin/Folic AC/Vit B6 [B Complex-Folic Acid] 1 each PO DAILY 07/26/14 [ History] Fludrocortisone [Florinef] 0.1 mg PO WITHBREAKFAST 07/26/14 [History] Metoclopramide [Reglan] 5 mg PO TIDAC 07/26/14 [History] Midodrine 5 mg PO ASDIRECTED 07/26/14 [History] Nystatin [Nystatin Crm] 30 gm TOP BID 07/26/14 [History] Sevelamer Carbonate [Renvela] 2,400 mg PO TID 07/26/14 [History] Sodium Polystyrene Sulfonate [Kayexalate] 15 gm PO ONETIME 07/26/14 [History] oxyCODONE 10 mg PO BID PRN 07/26/14 [History] Bisacodyl [Dulcolax] 10 mg RECTAL BID PRN 11/03/16 [History] Calcium Acetate 667 mg PO TID 11/03/16 [History] Fluticasone Propionate [Flonase] 2 sprays NASBOTH DAILY PRN 04/15/19 [History] Pantoprazole Sodium [Protonix] 20 mg PO DAILY 04/15/19 [History] Sertraline [Zoloft] 37.5 mg PO DAILY 04/15/19 [History] DULoxetine [Cymbalta] 60 mg PO DAILY 04/16/19 [History] Past Medical History HEENT History: Reports: None Cardiovascular History: Reports: CAD, Heart Failure, Hypertension, [place], SOB on Exertion, Stents Respiratory History: Reports: Sleep Apnea, SOB Other Respiratory History: O2 dependent at all times, 2L per n/c Gastrointestinal History: Reports: Cholelithiasis, Diverticulosis, GERD Genitourinary History: Reports: Acute Renal Failure, Chronic Renal Insuffiency, Dialysis, Diabetic Nephropathy, Renal Disease, Other (See Below) Other Genitourinary History: nephrolithiasis Musculoskeletal History: Reports: Fracture, Other (See Below) Other Musculoskeletal History: repair of fractured right kneecap Neurological History: Reports: Neuropathy, Diabetic, Neuropathy, Peripheral Psychiatric History: Reports: Eating Disorders Endocrine/Metabolic History: Reports: Diabetes, Type II, Hyperparathyroidism, IDDM, Obesity/BMI 30+ Hematologic History: Reports: Anemia Immunologic History: Reports: None Oncologic (Cancer) History: Reports: None Dermatologic History: Reports: Chronic Cellulitis - Infectious Disease History Infectious Disease History: Reports: None - Past Surgical History Cardiovascular Surgical History: Reports: Carotid Stents, Coronary Artery Stent Social & Family History - Family History Family Medical History: Noncontributory - Caffeine Use Caffeine Use: Reports: Soda - Living Situation & Occupation Living situation: Reports: , Extended Care Facility Occupation: Disabled ED ROS GENERAL - Review of Systems Review Of Systems: Comprehensive ROS is negative, except as noted in HPI. ED EXAM, GENERAL - Physical Exam Exam: See Below Exam Limited By: No Limitations General Appearance: Alert, WD/WN, Moderate Distress, Obese Eye Exam: Bilateral Eye: EOMI, Normal Inspection, PERRL Ears: Normal External Exam, Normal Canal, Hearing Grossly Normal, Normal TMs Nose: Normal Inspection, Normal Mucosa, No Blood Throat/Mouth: Normal Inspection, Normal Lips, Normal Teeth, Normal Gums, Normal Oropharynx, Normal Voice, No Airway Compromise Head: Atraumatic, Normocephalic Neck: Normal Inspection, Supple, Non-Tender, Full Range of Motion Respiratory/Chest: Lungs Clear, Chest Non-Tender, Decreased Breath Sounds Cardiovascular: Normal Peripheral Pulses, Regular Rate, Rhythm, No Edema, No Gallop, No JVD, No Murmur, No Rub GI/Abdominal: Normal Bowel Sounds, Soft, Non-Tender, No Organomegaly, No Distention, No Abnormal Bruit, No Mass, Other (morbid obesity) (Male) Exam: Deferred Rectal (Males) Exam: Deferred Back Exam: Normal Inspection, Full Range of Motion, NT Extremities: Normal Inspection, Normal Range of Motion, Non-Tender, Normal Capillary Refill, No Pedal Edema Neurological: Alert, Oriented, CN II-XII Intact, Normal Cognition, Normal Gait, Normal Reflexes, No Motor/Sensory Deficits Psychiatric: Normal Affect, Normal Mood Skin Exam: Warm, Dry, Intact, Normal Color, No Rash Lymphatic: No Adenopathy Course - Vital Signs Last Recorded V/S: Last Vital Signs Temp 36.2 C 06/21/19 16:03 Pulse 85 06/21/19 16:03 Resp 18 06/21/19 16:03 BP 83/49 L 06/21/19 16:03 Pulse Ox 98 06/21/19 16:03 - Orders/Labs/Meds Orders: Active Orders 24 hr Category Date Time Status EKG Documentation Completion [RC] URGENT Care 06/21/19 15:48 Active Chest 1V Frontal [CR] Urgent Exams 06/21/19 17:19 Ordered Labs: Laboratory Tests 06/21/19 06/21/19 06/21/19 Range/Units 16:03 16:09 16:09 WBC 12.2 H (5.0-10.0) 10^3/uL RBC 3.65 L (4.6-6.2) 10^6/uL Hgb 11.6 L (14.0-18.0) g/dL Hct 38.1 L (40.0-54.0) % MCV 104.4 H (80-100) fL MCH 31.8 (27.0-34.0) pg MCHC 30.4 L (33.0-35.0) g/dL Plt Count 134 L (150-450) 10^3/uL Neut % (Auto) 85.1 H (42.2-75.2) % Lymph % (Auto) 5.5 L (20.5-50.1) % Simpson % (Auto) 7.8 (2-8) % Eos % (Auto) 1.2 (1.0-3.0) % Baso % (Auto) 0.4 (0.0-1.0) % Sodium 140 (136-145) mmol/L Potassium 4.3 (3.5-5.1) mmol/L Chloride 102 (98-107) mmol/L Carbon Dioxide 29 (21-32) mmol/L Anion Gap 13.3 H (7-13) mEq/L BUN 58 H (7-18) mg/dL Creatinine 6.96 H* D (0.70-1.30) mg/dL Est Cr Clr Drug Dosing TNP Estimated GFR (MDRD) 8 BUN/Creatinine Ratio 8.3 (No establ ref range) Glucose 151 H (74-99) mg/dL Calcium 8.4 L (8.5-10.1) mg/dL Total Bilirubin 0.4 (0.2-1.0) mg/dL AST 9 L (15-37) U/L ALT < 6 L (16-63) U/L Alkaline Phosphatase 116 (46-116) U/L Troponin I < 0.017 (0.000-0.056) ng/mL Total Protein 7.6 (6.4-8.2) g/dL Albumin 3.1 L (3.4-5.0) g/dL Globulin 4.5 Albumin/Globulin Ratio 0.69 SARS-CoV-2 RNA (RT-PCR) Negative (NEGATIVE) Meds: Medications Discontinued Medications Generic Name Dose Route Start Last Admin Trade Name Freq PRN Reason Stop Dose Admin Lidocaine HCl Confirm 06/21/19 16:21 06/21/19 16:55 Xylocaine-Mpf 1% Administered 06/21/19 16:22 1 ml Dose Administration 30 ml .ROUTE .STK-MED ONE Lidocaine HCl 1 ml 06/21/19 16:30 06/21/19 16:55 Xylocaine-Mpf 1% INJECT 06/21/19 16:31 Not Given ONETIME ONE Departure - Departure Time of Disposition: 18:22 Disposition: DC/Tfer to Acute Hospital 02 Condition: Fair Clinical Impression: Bronchitis Syncope Qualifiers: Syncope type: unspecified Qualified Code(s): R55 - Syncope and collapse CKD (chronic kidney disease) Qualifiers: Chronic kidney disease stage: unspecified stage Qualified Code(s): N18.9 - Chronic kidney disease, unspecified - Discharge Information *PRESCRIPTION DRUG MONITORING PROGRAM REVIEWED*: Not Applicable *COPY OF PRESCRIPTION DRUG MONITORING REPORT IN PATIENT ELISABETH: Not Applicable [facility] Plan Goals: Discussed the patient's history, examination, lab, x-ray and EKG results with Dr. Anderson (Hospitalist with [facility] in [place]). Dr. Anderson accepted the patient for continued evaluation and treatment as a patient at [facility] in [place]. The patient will be transported by [facility]. Sepsis Event Note - Focused Exam Vital Signs: Vital Signs Temp Pulse Resp BP Pulse Ox 06/21/19 16:03 36.2 C 85 18 83/49 L 98 Date Exam was Performed: 06/21/19 Time Exam was Performed: 18:27 - My Orders Last 24 Hours: My Active Orders 06/21/19 15:48 EKG Documentation Completion [RC] URGENT 06/21/19 17:19 Chest 1V Frontal [CR] Urgent - Assessment/Plan Last 24 Hours: My Active Orders 06/21/19 15:48 EKG Documentation Completion [RC] URGENT 06/21/19 17:19 Chest 1V Frontal [CR] Urgent
[2019-06-21] MEDS ORDERED: Lidocaine 1% 30 ML SDV ONE (16:21)
[2019-06-21 16:23] VITALS: BP 83/49; PULSE 85
[2019-06-21] MEDS ORDERED: Lidocaine 1% 30 ML SDV INJECT ONE (16:30)
[2019-06-21 16:43] LABS: ANION GAP 13.3 mEq/L (7-13); CHLORIDE,CL 102 mmol/L (98-107); SODIUM,NA 140 mmol/L (136-145)
== END 2019-06-21 20:33 ==
LOC: DL.ED 15:25
DX: R55 Syncope and collapse (principal); J40 Bronchitis, not specified as acute or chronic; I13.0 Hypertensive heart and chronic kidney disease with heart failure and stage 1 through stage 4 chronic kidney disease, or unspecified chronic kidney disease; I50.9 Heart failure, unspecified; N18.9 Chronic kidney disease, unspecified; I25.2 Old myocardial infarction; I25.10 Atherosclerotic heart disease of native coronary artery without angina pectoris; E11.22 Type 2 diabetes mellitus with diabetic chronic kidney disease; E11.21 Type 2 diabetes mellitus with diabetic nephropathy; E11.42 Type 2 diabetes mellitus with diabetic polyneuropathy; E66.9 Obesity, unspecified; K21.9 Gastro-esophageal reflux disease without esophagitis; Z79.82 Long term (current) use of aspirin; Z79.02 Long term (current) use of antithrombotics/antiplatelets; Z79.899 Other long term (current) drug therapy; Z88.1 Allergy status to other antibiotic agents; Z99.81 Dependence on supplemental oxygen; Z95.5 Presence of coronary angioplasty implant and graft; Z91.048 Other nonmedicinal substance allergy status; Z20.828 Contact with and (suspected) exposure to other viral communicable diseases
CPT/HCPCS: 36415; 71045; 80053; 84484; 85025; 93005; 99284; 99285; J2001; U0002

== ENCOUNTER 2019-07-19 17:02 | Emergency (ER) | payer MEDICARE, MEDICAID ==
[2019-07-19 16:56] VITALS: BP 140/57
[~2019-07-19 17:02] MED LIST: Albuterol/Ipratropium 3.0-0.5 MG/3 ML Neb Soln NEB ONE
--- NOTE | 2019-07-19 17:02 | EDM.PDOC ---
ED HPI GENERAL MEDICAL PROBLEM - General Chief Complaint: Respiratory Problem Stated Complaint: UNKNOWN Time Seen by Provider: 07/19/19 16:50 Source of Information: Reports: Patient History Limitations: Reports: No Limitations - History of Present Illness INITIAL COMMENTS - FREE TEXT/NARRATIVE: This 53 yo male patient was brought to the ED from [facility] after having a teleconference appointment with a provider from [facility] here in [place]. The patient reports he has been experiencing shortness of breath for the past 3 weeks. After the teleconference today for about 1 hour, the provider advised the patient to come to the ED for evaluation and treatment. The patient reports he was sent to [facility] in [place] about 1 month ago for a pneumonia. The patient reports his shortness of breath increased about 1 week after his return from [place]. Onset: Unknown/Unsure Duration: Week(s):, Constant Location: Reports: Chest Quality: Reports: Other Severity: Severe Improves with: Reports: None Worsens with: Reports: None Context: Reports: Other Associated Symptoms: Reports: No Other Symptoms - Related Data Allergies Allergy/AdvReac Type Severity Reaction Status Date / Time ciprofloxacin Allergy Hives Verified 07/19/19 16:56 tegaderm tape Allergy Blisters Uncoded 07/19/19 16:56 Home Meds: Home Meds Aspirin [Ecotrin] 81 mg PO DAILY 06/27/13 [History] Cinacalcet [Sensipar] 30 mg PO DAILY 06/27/13 [History] Clopidogrel [Plavix] 75 mg PO DAILY 06/27/13 [History] Gabapentin [Neurontin] 300 mg PO TID 06/27/13 [History] Nitroglycerin [Nitrostat] 1 tab SL ASDIRECTED PRN 06/27/13 [History] Simvastatin [Zocor] 20 mg PO BEDTIME 06/27/13 [History] Acetaminophen 2 tab PO Q4HR PRN 07/26/14 [History] Calcium Carbonate/Vitamin D3 [Calcium 600 + Vit D 400 Tablet] 2 each PO BID 05/07 [History] Cyanocobalamin/Folic AC/Vit B6 [B Complex-Folic Acid] 1 each PO DAILY 07/26/14 [ History] Fludrocortisone [Florinef] 0.1 mg PO WITHBREAKFAST 07/26/14 [History] Metoclopramide [Reglan] 5 mg PO TIDAC 07/26/14 [History] Midodrine 5 mg PO ASDIRECTED 07/26/14 [History] Nystatin [Nystatin Crm] 30 gm TOP BID 07/26/14 [History] Sevelamer Carbonate [Renvela] 2,400 mg PO TID 07/26/14 [History] Sodium Polystyrene Sulfonate [Kayexalate] 15 gm PO ONETIME 07/26/14 [History] oxyCODONE 10 mg PO BID PRN 07/26/14 [History] Bisacodyl [Dulcolax] 10 mg RECTAL BID PRN 11/03/16 [History] Calcium Acetate 667 mg PO TID 11/03/16 [History] Fluticasone Propionate [Flonase] 2 sprays NASBOTH DAILY PRN 04/15/19 [History] Pantoprazole Sodium [Protonix] 20 mg PO DAILY 04/15/19 [History] Sertraline [Zoloft] 100 mg PO DAILY 04/15/19 [History] DULoxetine [Cymbalta] 60 mg PO DAILY 04/16/19 [History] Cyanocobalamin/Folic AC/Vit B6 [B Complex-Folic Acid] 1 each PO DAILY 07/19/19 [ History] LORazepam [Lorazepam] 0.5 mg PO PRN 07/19/19 [History] Sennosides/Docusate Sodium [Senna Plus 8.6-50 mg Softgel] 1 each PO DAILY PRN [History] Triamcinolone Acetonide [Nasacort] 10.8 ml NS DAILY 07/19/19 [History] traZODone HCl [Trazodone HCl] 50 mg PO BEDTIME 07/19/19 [History] Past Medical History HEENT History: Reports: None Cardiovascular History: Reports: CAD, Heart Failure, Hypertension, [place], SOB on Exertion, Stents Respiratory History: Reports: Sleep Apnea, SOB Other Respiratory History: O2 dependent at all times, 2L per n/c Gastrointestinal History: Reports: Cholelithiasis, Diverticulosis, GERD Genitourinary History: Reports: Acute Renal Failure, Chronic Renal Insuffiency, Dialysis, Diabetic Nephropathy, Renal Disease, Other (See Below) Other Genitourinary History: nephrolithiasis Musculoskeletal History: Reports: Fracture, Other (See Below) Other Musculoskeletal History: repair of fractured right kneecap Neurological History: Reports: Neuropathy, Diabetic, Neuropathy, Peripheral Psychiatric History: Reports: Eating Disorders Endocrine/Metabolic History: Reports: Diabetes, Type II, Hyperparathyroidism, IDDM, Obesity/BMI 30+ Hematologic History: Reports: Anemia Immunologic History: Reports: None Oncologic (Cancer) History: Reports: None Dermatologic History: Reports: Chronic Cellulitis - Infectious Disease History Infectious Disease History: Reports: None - Past Surgical History Cardiovascular Surgical History: Reports: Carotid Stents, Coronary Artery Stent Social & Family History - Family History Family Medical History: Noncontributory - Caffeine Use Caffeine Use: Reports: Soda - Living Situation & Occupation Living situation: Reports: , Extended Care Facility Occupation: Disabled ED ROS GENERAL - Review of Systems Review Of Systems: Comprehensive ROS is negative, except as noted in HPI. ED EXAM, GENERAL - Physical Exam Exam: See Below Exam Limited By: No Limitations General Appearance: Alert, WD/WN, Moderate Distress, Obese Eye Exam: Bilateral Eye: EOMI, Normal Inspection, PERRL Ears: Normal External Exam, Normal Canal, Hearing Grossly Normal, Normal TMs Nose: Normal Inspection, Normal Mucosa, No Blood Throat/Mouth: Normal Inspection, Normal Lips, Normal Teeth, Normal Gums, Normal Oropharynx, Normal Voice, No Airway Compromise Head: Atraumatic, Normocephalic Neck: Normal Inspection, Supple, Non-Tender, Full Range of Motion Respiratory/Chest: Lungs Clear, No Accessory Muscle Use, Chest Non-Tender, Decreased Breath Sounds Cardiovascular: Normal Peripheral Pulses, Regular Rate, Rhythm, No Gallop, No JVD, No Murmur, No Rub GI/Abdominal: Normal Bowel Sounds, Soft, Non-Tender, No Organomegaly, Other ( obese) (Male) Exam: Deferred Rectal (Males) Exam: Deferred Back Exam: Normal Inspection Extremities: Pedal Edema Neurological: Alert, Oriented, CN II-XII Intact, Normal Cognition Psychiatric: Normal Affect, Normal Mood Skin Exam: Warm, Dry, Intact, Normal Color, No Rash Lymphatic: No Adenopathy Course - Vital Signs Last Recorded V/S: Last Vital Signs Temp 36.0 C L 07/19/19 16:53 Pulse 88 07/19/19 16:57 Resp 24 H 07/19/19 16:53 BP 140/57 L 07/19/19 16:53 Pulse Ox 97 07/19/19 16:57 - Orders/Labs/Meds Orders: Active Orders 24 hr Category Date Time Status EKG Documentation Completion [RC] STAT Care 07/19/19 16:56 Active RT Aerosol Therapy [RC] ASDIRECTED Care 07/19/19 16:57 Active Chest 1V Frontal [CR] Urgent Exams 07/19/19 18:18 Taken CULTURE BLOOD [BC] Stat Lab 07/19/19 17:08 Received Labs: Laboratory Tests 07/19/19 07/19/19 07/19/19 Range/Units 17:08 17:08 17:08 WBC 11.0 H (5.0-10.0) 10^3/uL RBC 4.19 L (4.6-6.2) 10^6/uL Hgb 13.2 L D (14.0-18.0) g/dL Hct 41.7 (40.0-54.0) % MCV 99.5 D (80-100) fL MCH 31.5 (27.0-34.0) pg MCHC 31.7 L (33.0-35.0) g/dL Plt Count 164 (150-450) 10^3/uL Neut % (Auto) 79.6 H (42.2-75.2) % Lymph % (Auto) 8.8 L (20.5-50.1) % Linn % (Auto) 9.4 H (2-8) % Eos % (Auto) 1.7 (1.0-3.0) % Baso % (Auto) 0.5 (0.0-1.0) % D-Dimer, Quantitative 2450 H (0-400) ng/mL Sodium 139 (136-145) mmol/L Potassium 4.6 (3.5-5.1) mmol/L Chloride 100 (98-107) mmol/L Carbon Dioxide 29 (21-32) mmol/L Anion Gap 14.6 H (7-13) mEq/L BUN 42 H (7-18) mg/dL Creatinine 5.37 H* D (0.70-1.30) mg/dL Est Cr Clr Drug Dosing 17.06 mL/min Estimated GFR (MDRD) 11 BUN/Creatinine Ratio 7.8 (No establ ref range) Glucose 123 H (74-99) mg/dL Lactic Acid (0.4-2.0) mmol/L Calcium 8.5 (8.5-10.1) mg/dL Total Bilirubin 0.4 (0.2-1.0) mg/dL AST 12 L (15-37) U/L ALT 12 L (16-63) U/L Alkaline Phosphatase 140 H (46-116) U/L Troponin I 0.020 (0.000-0.056) ng/mL B-Natriuretic Peptide 674 H (0-100) pg/ml Total Protein 8.1 (6.4-8.2) g/dL Albumin 3.7 (3.4-5.0) g/dL Globulin 4.4 Albumin/Globulin Ratio 0.8 05/26/20 Range/Units 17:08 WBC (5.0-10.0) 10^3/uL RBC (4.6-6.2) 10^6/uL Hgb (14.0-18.0) g/dL Hct (40.0-54.0) % MCV (80-100) fL MCH (27.0-34.0) pg MCHC (33.0-35.0) g/dL Plt Count (150-450) 10^3/uL Neut % (Auto) (42.2-75.2) % Lymph % (Auto) (20.5-50.1) % Linn % (Auto) (2-8) % Eos % (Auto) (1.0-3.0) % Baso % (Auto) (0.0-1.0) % D-Dimer, Quantitative (0-400) ng/mL Sodium (136-145) mmol/L Potassium (3.5-5.1) mmol/L Chloride (98-107) mmol/L Carbon Dioxide (21-32) mmol/L Anion Gap (7-13) mEq/L BUN (7-18) mg/dL Creatinine (0.70-1.30) mg/dL Est Cr Clr Drug Dosing mL/min Estimated GFR (MDRD) BUN/Creatinine Ratio (No establ ref range) Glucose (74-99) mg/dL Lactic Acid 1.2 (0.4-2.0) mmol/L Calcium (8.5-10.1) mg/dL Total Bilirubin (0.2-1.0) mg/dL AST (15-37) U/L ALT (16-63) U/L Alkaline Phosphatase (46-116) U/L Troponin I (0.000-0.056) ng/mL B-Natriuretic Peptide (0-100) pg/ml Total Protein (6.4-8.2) g/dL Albumin (3.4-5.0) g/dL Globulin Albumin/Globulin Ratio Meds: Medications Discontinued Medications Generic Name Dose Route Start Last Admin Trade Name Freq PRN Reason Stop Dose Admin Albuterol/Ipratropium 3 ml 07/19/19 16:57 07/19/19 17:05 Duoneb 3.0-0.5 Mg/3 Ml NEB 07/19/19 16:58 3 ml ONETIME ONE Administration Departure - Departure Time of Disposition: 19:00 Disposition: DC/Tfer to Acute Hospital 02 Condition: Fair Clinical Impression: Respiratory distress, Dialysis patient, Elevated d-dimer Congestive heart failure Qualifiers: Heart failure type: unspecified Heart failure chronicity: acute on chronic Qualified Code(s): I50.9 - Heart failure, unspecified - Discharge Information *PRESCRIPTION DRUG MONITORING PROGRAM REVIEWED*: Not Applicable *COPY OF PRESCRIPTION DRUG MONITORING REPORT IN PATIENT ELISABETH: Not Applicable Forms: Interfacility Transfer [facility] Care Plan Goals: Discussed the patient's history, examination, lab and x-ray results with Dr. Anderson. Dr. Anderson accepted the patient for continued evaluation and management as an inpatient at [facility] in [place]. The patient will be transported by [facility]. Sepsis Event Note - Evaluation Sepsis Screening Result: No Definite Risk - Focused Exam Vital Signs: Vital Signs Temp Pulse Resp BP Pulse Ox Pulse Ox 07/19/19 16:57 88 97 07/19/19 16:53 36.0 C L 87 24 H 140/57 L 100 Date Exam was Performed: 07/19/19 Time Exam was Performed: 18:59 - My Orders Last 24 Hours: My Active Orders 07/19/19 16:56 EKG Documentation Completion [RC] STAT 07/19/19 16:57 RT Aerosol Therapy [RC] ASDIRECTED 07/19/19 17:08 CULTURE BLOOD [BC] Stat 07/19/19 18:18 Chest 1V Frontal [CR] Urgent - Assessment/Plan Last 24 Hours: My Active Orders 07/19/19 16:56 EKG Documentation Completion [RC] STAT 07/19/19 16:57 RT Aerosol Therapy [RC] ASDIRECTED 07/19/19 17:08 CULTURE BLOOD [BC] Stat 07/19/19 18:18 Chest 1V Frontal [CR] Urgent
[2019-07-19 17:06] VITALS: PULSE 88
[2019-07-19 17:40] LABS: ANION GAP 14.6 mEq/L (7-13)
== END 2019-07-19 19:29 ==
LOC: DL.ED 17:02
DX: I13.2 Hypertensive heart and chronic kidney disease with heart failure and with stage 5 chronic kidney disease, or end stage renal disease (principal); E11.22 Type 2 diabetes mellitus with diabetic chronic kidney disease; N18.6 End stage renal disease; I50.9 Heart failure, unspecified; Z99.2 Dependence on renal dialysis; R79.1 Abnormal coagulation profile; R06.03 Acute respiratory distress; I25.10 Atherosclerotic heart disease of native coronary artery without angina pectoris; I25.2 Old myocardial infarction; K21.9 Gastro-esophageal reflux disease without esophagitis; E11.42 Type 2 diabetes mellitus with diabetic polyneuropathy; E11.21 Type 2 diabetes mellitus with diabetic nephropathy; E66.9 Obesity, unspecified; Z68.42 Body mass index [BMI] 45.0-49.9, adult; Z88.1 Allergy status to other antibiotic agents; Z91.048 Other nonmedicinal substance allergy status; Z79.82 Long term (current) use of aspirin; Z79.02 Long term (current) use of antithrombotics/antiplatelets; Z79.899 Other long term (current) drug therapy
CPT/HCPCS: 36415; 71045; 80053; 83605; 83880; 84484; 85025; 85379; 87040; 93005; 94640; 99285-25; J7620-GY